=== PATIENT | female | born 1940 | race Caucasian/White ===

== ENCOUNTER 2022-05-28 12:12 | Inpatient (IN) | payer MEDICARE, SELFPAY ==
[2022-05-28] VITALS (7 sets, daily range): BP systolic 108–137; BP diastolic 71–87; PULSE 64–83; RESP 15–20; TEMP 36.4–37; O2SAT 93–98; BMI 20.7
--- NOTE | ~2022-05-28 | XR_ITS ---
XR chest 1V portable DATE: 05/28/2022 14:55 INDICATION: Cough TECHNIQUE: Portable upright AP chest on 05/28/2022 at 1440 COMPARISON:. None FINDINGS: Cardiomegaly. Aortic calcification and unfolding. Left lower lobe infiltrate and/or atelectasis. Discoid atelectasis or scarring, right lower lung. The lungs otherwise appear essentially clear. Minimal blunting of left costophrenic angle may indicate small left pleural effusion. Pulmonary vascularity is within normal range. No pneumothorax. Diffuse osteopenia. There is loss of height of T10 vertebral body. IMPRESSION: : Left lower lobe infiltrate and/atelectasis and small left pleural effusion Discoid atelectasis or scarring, right lower lung Cardiomegaly, aortic atherosclerosis Osteopenia, loss of height of T10 Reviewed, dictated and finalized at location B. RAMMER OPERATOR NUMERICAL CONTROL
--- NOTE | ~2022-05-28 | XR_ITS ---
XR hip RT 2V w AP pelvis DATE: 05/28/2022 14:57 INDICATION: Right groin pain TECHNIQUE: Portable AP pelvis views. Portable AP and lateral views of right hip COMPARISON: None FINDINGS: There is diffuse osteopenia. There is levoscoliosis and severe multilevel degenerative disc disease of the lumbar spine. There is a transitional lumbosacral vertebra sacralization pseudoarthrosis on the left. Alignment is preserved at the pubic symphysis and sacroiliac joints. There is slight cortical malalignment and lucency near the junction of the acetabulum and right super ior pubic ramus, likely due to a subtle acute fracture. There is lucency of the medial aspect of the right inferior pubic ramus which may represent fracture and/or lytic lesion. Pelvic CT examination is recommended for further evaluation. There is severe right hip joint space narrowing and mild spurring. There is chondrocalcinosis at the right hip. No fracture or dislocation, avascular necrosis or bone destruction of the right hip is det ected. IMPRESSION: Acute fracture Injection of the right acetabulum and superior pubic ramus and fracture and/or bone destruction at th e medial aspect of the right inferior pubic ramus. 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 ODILE FARMER IMPRESSION: Acute fracture Injection of the right acetabulum and superior pubic ramus and fracture and/or bone destruction at the medial aspect of the right inferior pubic ramus. CT pel vis examination is recommended for further evaluation Prominent right hip osteoarthritis Osteopenia Transitional lumbosacral vertebra Severe degenerative disc disease of the lumbar spine
--- NOTE | ~2022-05-28 | US_ITS ---
US renal BI 05/29/2022 08:32 Procedure: Realtime transabdominal ultrasound of the kidneys and bladder. Indication: Acute renal insufficiency Comparison: No prior studies for comparison. Findings: Renal echotexture is normal bilaterally without hydronephrosis, contour deforming mass or r enal calculus. The right kidney measures 10.6 cm and left kidney measures 13.3 cm. There is a left re nal cyst measuring 6.3 cm. Bladder within normal limits. Impression: 1: Left renal cyst measuring 6.3 cm. Reviewed, dictated and finalized at location A. ORT SPECIALIST Impression: 1: Left renal cyst measuring 6.3 cm.
--- NOTE | ~2022-05-28 | NM_ITS ---
EXAMINATION: NM bone scan whole body DATE: 06/01/2022 14:21 INDICATION: Metastases TECHNIQUE: 26.6 mCi Tc-99m HDP was administered intravenously. Delayed whole-body scintigrams were o btained. COMPARISON: CT of the chest and of the abdomen and pelvis dated 05/28/2022 FINDINGS: Multiple foci of marked increased uptake in the skull, sternum, spine, left glenoid, multiple ribs an d in the pelvis. There are corresponding primarily lytic bone lesions on CT. More typical pattern of likely degenerative joint centered uptake at the left patella bilateral hands and wrists and right ac romioclavicular joint. IMPRESSION: 1. Numerous foci of increased uptake corresponding to the innumerable lytic lesion seen on prior CT c onsistent with widespread osseous metastatic disease. Reviewed, dictated and finalized at location A. CTOR OF PHARMACY IMPRESSION: 1. Numerous foci of increased uptake corresponding to the innumerable lytic les ion seen on prior CT consistent with widespread osseous metastatic disease.
--- NOTE | ~2022-05-28 | CT_ITS ---
EXAMINATION: CT abdomen pelvis wo con DATE: 05/28/2022 15:27 INDICATION: Right hip and back pain. Hypercalcemia. TECHNIQUE: Computed tomography (CT) of the abdomen and pelvis was performed without intravenous contr ast. Automated exposure control and iterative reconstruction technique were employed. Exam dose: 316 .26 mGy-cm total exam DLP. COMPARISON: 05/28/2022 AP pelvis and right hip FINDINGS: There is left basilar lower lobe infiltrate and/or atelectasis with air bronchograms. There is prominent discoid atelectasis or scarring in the posterior basilar right lower lobe. Small left pleural effusion. Heart size is within normal limits. Approximately 6 mm lower medial right hepatic hypoattenuating lesion, most likely a small cyst. The l iver otherwise appears unremarkable on this limited noncontrast examination. The gallbladder is unremarkable. No bile duct or pancreatic duct dilatation. No pancreatic mass lesio n or calcification is evident. Normal splenic size. The adrenal glands are unremarkable. 5.6 cm exophytic lateral left renal cyst. 8.5 mm hyperdense lower pole right renal probable cyst. No urinary tract calculus or hydroureteronephrosis. There is abdominal aortic calcification but no aneurysm. No intraperitoneal or retroperitoneal or pel mt mass lesion or adenopathy or ascites is noted. The uterus, adnexal areas and urinary bladder are unremarkable. Normal appendix. There is a prominent of fecal material in the rectum and colon but no rectal or colon wall thickening is noted. There are numerous diverticula of the sigmoid and descending colon but no evidence of diverticulitis. No bowel obstruction or intraperitoneal free air. The examination is remarkable for extensive osteolytic lesions of the axial skeleton including some r ibs, severe lytic involvement of the included lower thoracic and lumbar spine, the sacrum, iliac bone s. Probable [id number] pathologic compression fracture T10. There is a pathologic fracture of t he anteromedial aspect of the right acetabulum and lateral aspect of the right superior pubic ramus. There is a pathologic fracture of the medial aspect of the right inferior pubic ramus . 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 Left basilar lower lobe infiltrate and/atelectasis with air bronchograms and prominent discoid atelec tasis or scarring in the posterior basilar right lower lobe Small left pleural effusion Probable 6 month right hepatic cyst, right renal cysts Normal appendix Diverticulosis of left colon; no evidence of diverticulitis Reviewed, dictated and finalized at Location A. Reviewed, dictated and finalized at location B. CTOR PATIENT ACCOUNTING IMPRESSION: Extensive severe osteolytic metastatic disease of the axial skelet on with pathologic fractures of the right acetabulum/lateral superior pubic meir us, right inferior pubic ramus, T10 compression fracture, likely pathologic. Left basilar lower lobe infiltrate and/atelectasis with air bronchograms and pr ominent discoid atelectasis or scarring in the posterior basilar right lower lo be Small left pleural effusion Probable 6 month right hepatic cyst, right renal cysts Normal appendix Diverticulosis of left colon; no evidence of diverticulitis
--- NOTE | ~2022-05-28 | CT_ITS ---
EXAMINATION: CT diagnostic chest wo con DATE: 05/28/2022 16:48 INDICATION: Cough, hypercalcemia TECHNIQUE: Computed tomography (CT) of the chest was performed without intravenous contrast. The dose -length product (DLP) was 128.65 mGy-cm. Automated exposure control and iterative reconstruction tech nique were employed. COMPARISON: None FINDINGS: There is moderate emphysema. There is a small left pleural effusion. There is atelectasis i n the lower lobes and lingula. No pneumothorax is identified. There is a 4.6 x 2.6 cm irregular mass of the left breast. Cardiomegaly is noted. There is an enlarged left axillary lymph node. There are w idespread lytic lesions throughout the spine, sternum, left scapula and multiple ribs. There are mult iple pathologic fractures of the thoracic spine. IMPRESSION: 1. Widespread osseous lytic lesions as described above. Differential would include multiple myeloma a nd metastatic disease. Given the presence of a large, irregular left breast mass. Finding favors meta static breast cancer. 2. Severe emphysema. 3. Cardiomegaly. 4. Small left pleural effusion. Reviewed, dictated and finalized at location F. OM TURNER IMPRESSION: 1. Widespread osseous lytic lesions as described above. Differential would incl ude multiple myeloma and metastatic disease. Given the presence of a large, irr egular left breast mass. Finding favors metastatic breast cancer. 2. Severe emphysema. 3. Cardiomegaly. 4. Small left pleural effusion.
--- NOTE | ~2022-05-28 | US_ITS ---
EXAMINATION: US GUIDED NEEDLE BIOPSY DATE: 06/02/2022 10:15 EXERCISE SCIENTIST INDICATION: Palpable left breast mass. Recent CT chest examination demonstrated a large left breast m ass. TECHNIQUE AND FINDINGS: The risks and potential benefits of the procedure were discussed with the patient, and written inform ed consent was obtained. Timeout procedure was performed. After sterile preparation of the left breas t, 1% lidocaine was utilized for local anesthesia. A 14G spring-loaded biopsy gun needle was advanced to the edge of the region of interest from a later al approach utilizing sonographic guidance. A total of three tissue core samples were obtained throu gh the lesion. An Inrad tissue marker clip was then placed at the biopsy site. Hemostasis was achiev ed. A sterile bandage was applied. The patient tolerated procedure well and there was no evidence of immediate complication. The patien t was given verbal instructions prior to departing from the department. The tissue samples were submi tted to surgical pathology for histologic analysis. IMPRESSION: 1. Successful ultrasound guided biopsy of left subareolar breast mass with biopsy marker placement. Please refer to pathology report for histologic analysis. Reviewed, dictated and finalized at Location A. Reviewed, dictated and finalized at location A. CISE SCIENTIST IMPRESSION: 1. Successful ultrasound guided biopsy of left subareolar breast mass with bio psy marker placement. Please refer to pathology report for histologic analysis.
[2022-05-28 12:43] LABS: Basophils Absolute Auto 0.1 K/mm3 (0.0-0.1); Eosinophils Absolute Auto 0.3 K/mm3 (0-0.3); Eosinophils Percent Auto 3.4 % (0-4.4); Hematocrit 39.3 % (37.0-47.0); Immature Granulocyte Absolute 0.05 K/mm3 (0.00-0.031); Immature Granulocyte Percent A 0.6 % (0-0.5); Lymphocytes Absolute Auto 1.73 K/mm3 (0.9-3.2); Lymphocytes Percent Auto 19.1 % (18.3-44.2); Mean Corpuscular HGB Conc 33.1 g/dl (32-36); Mean Corpuscular Hemoglobin 31.2 pg (26-34); Mean Corpuscular Volume 94.2 fl (80-100); Mean Platelet Volume 10.1 fl (7.4-10.4); Monocytes Absolute Auto 0.5 K/mm3 (0.1-0.6); Monocytes Percent Auto 5.9 % (2.6-8.5); Neutrophils Absolute Auto 6.3 K/mm3 (1.3-6.7); Platelet Count Result 380 k/mm3 (150-375); Red Blood Count 4.17 M/mm3 (4.2-5.4); Red Cell Distribution Width 14.9 % (11.5-14.5)
[2022-05-28 12:58] LABS: Alanine Aminotransferase 20 U/L (6-35); Albumin Level 4.3 g/dL (3.5-5.1); Alkaline Phosphatase 143 U/L (38-126); Anion Gap 16 mmol/L (8-16); Aspartate Amino Transferase 73 U/L (14-36); Bilirubin,Total 0.5 mg/dL (0.2-1.3); Blood Urea Nitrogen 38 mg/dL (7-17); Carbon Dioxide 31 mmol/L (22-30); Chloride 90 mmol/L (98-107); Estimated CRCL calculation 17 ml/min; Estimated Glomerular Filt Rate 21; Glucose 126 mg/dL (65-110); Potassium 2.3 mmol/L (3.4-5.0); Sodium 137 mmol/L (137-145)
[2022-05-28 13:10] LABS: Calcium 14.5 mg/dL (8.4-10.2)
--- NOTE | 2022-05-28 13:40 | ECG_ITS ---
Measurements Intervals [place] Rate: 67 P: 261 [place]: 155 QRS: 15 QRSD: 98 T: 34 QT: 395 QTc: 418 Interpretive Statements SINUS RHYTHM VENTRICULAR PREMATURE COMPLEX BORDERLINE ECG NO PREVIOUS ECG AVAILABLE FOR COMPARISON Electronically Signed On 05-28-2022 15:51:26 DIRECTOR OF ENGINEERING by Jn Choudhary D.O.
[2022-05-28 13:57] LABS: Magnesium 2.5 mg/dL (1.6-2.3)
[2022-05-28 15:31] LABS: SARS-CoV-2 RNA PCR Negative
--- NOTE | 2022-05-28 15:50 | ED.GENADULT ---
HPI - General Adult General Chief complaint: Recheck/Abnormal Lab/Rx Stated complaint: ELEVATED CALCIUM Time Seen by Provider: 05/28/22 13:40 History of Present Illness HPI narrative: Patient presents emergency department from home for abnormal labs. Patient states she gone to visit her PCP Dr. Albert Ulrich yesterday for a routine visit blood work of been done and she been called today telling her to come to the emergency department because her calcium level is elevated. She states that she has had no recent illness she denies any recent nausea vomiting or diarrhea denies any coughs or fevers. She states that approximately a month ago she did strained a muscle in her right lower leg and has had progressive difficulty walking since that time she states she had had been having to use crutches she denies any direct trauma or fall she states she was post be getting x-rays of this area today but they had called to tell her to come to the ER asking for further evaluation Related Data Allergies Allergy/AdvReac Type Severity Reaction Status Date / Time Sulfa (Sulfonamide Allergy Rash Verified 05/28/22 15:59 Antibiotics) Review of Systems Review of Systems: Gen.: Denies fevers or chills Eyes: Denies eye pain or visual change ENT: Denies congestion Respiratory: Denies shortness of breath or cough CV: Denies chest pain or palpitations GI: Denies abdominal pain nausea, emesis or diarrhea Musculoskeletal: See HPI Neuro: Denies numbness, tingling, weakness or focal weakness Skin: Denies rash Except as documented, all other systems reviewed and negative [facility] Past Medical History Medical History (Updated 05/28/22 @ 17:58 by Claudio Bills DO) Hypertension Social History Social History (Updated 05/28/22 @ 17:55 by Claudio Bills DO) Smoking status: Former smoker Exam Narrative: APPEARANCE: No acute distress, nontoxic, resting in bed EYES: EOMI HEENT: Normocephalic, atraumatic, OMM RESPIRATORY: No respiratory distress Clear to auscultation bilaterally with no rhonchi wheezing or rales. CARDIOVASCULAR: Regular rate and rhythm without murmurs rubs or gallops. ABDOMINAL: Soft, nontender, nondistended, no rebound or guarding MUSCULOSKELETAl: Moves all extremities. No clubbing, cyanosis or edema. No tenderness of the anterior lateral hip full flexion-extension of the right hip with pain with flexion of the hip greater than 45 degrees no tenderness of the right knee or ankle dorsalis pedis pulse 2+ neurovascular Back: No midline thoracic or lumbar tenderness to palpation NEURO: Awake and alert. Following commands, speech normal, no focal deficits SKIN:: Warm, dry. No rashes lesions or abrasions PSYCHIATRIC: Normal affect/mood, Course Course Emergency Course: Discussed with Dr. Samuels presentation work-up agrees with consult recommends patient receiving a liter fluid at this time with IV hydration and repeat labs in a.m. Discussed with Dr. Ndiaye presentation work-up he reviewed the patient CT scan states the the patient was nonsurgical and he is able to follow as a consult Discussed with Dr. Mott presentation work-up he agrees CT scan of the chest and agrees with consult Discussed with ARACELI Robin for Dr. Stark agrees with admission Discussed with patient and family results of workup and diagnosis. Discussed need for admission. Patient and family understand and agree to current treatment plan. I did have a long discussion with the patient and daughter regarding metastatic disease we discussed the left breast mass need for follow-up with consultants Vital Signs Vital signs: Vital Signs Temperature 97.6 F 05/28/22 12:22 Pulse Rate 83 05/28/22 12:22 Respiratory Rate 17 05/28/22 12:22 Blood Pressure 123/80 05/28/22 12:22 Pulse Oximetry 96 05/28/22 12:22 Oxygen Delivery Room Air 05/28/22 12:22 Temperature 97.6 F 05/28/22 12:22 Pulse Rate 68 05/28/22 15:01 Respiratory Rate 15
--- NOTE | 2022-05-28 15:57 | PC.NURSE ---
ATTEMPTED TO OBTAIN URINE SAMPLE IN SPECIMEN CONTAINER IN BEDSIDE COMMODE PT REFUSED STRAIGHT CATH. PT APPARENTLY HAD OLD USED TOILET PAPER IN HER UNDERWEAR THAT FELL AND CONTAMINATED THE SAMPLE.
[2022-05-28] MEDS: POTASSIUM CHLORIDE 20 MEQ TABLET 40 MEQ PO (16:02)
[2022-05-28] MEDS: POTASSIUM CHLORIDE INJ 40 MEQ in SODIUM CHLORIDE 0.9% IV 500 ML 130 MEQ IVPB (16:02)
[2022-05-28] MEDS: SODIUM CHLORIDE 0.9% IV 1,000 ML 999 ML IV CONT (16:03)
[2022-05-28 18:05] LABS: Appearance Urine Clear (Clear); Bilirubin Urine Negative (Negative); Blood Urine Negative (Negative); Color Urine Yellow (Yellow); Glucose Urine UA Negative (Negative); Ketones Urine Trace mg/dL (Negative); Leukocyte Esterase Ur Negative LEU/UL (Negative); Nitrate Urine Negative (Negative); Protein Urine Negative (Negative); Specific Grav Ur 1.015 (1.001-1.035); Urobilinogen Urine 0.2 mg/dL (<2.0)
[2022-05-28 18:15] LABS: Mucus Urine Rare /lpf; RBC Urine 0-2 /hpf (0-2); WBC Urine 0-3 /hpf
--- NOTE | 2022-05-28 18:30 | ADMGEN ---
This patient, Ludy Morton, was admitted to Medical Room 242-. Patient/family oriented to hospital policies and general routines including ID bracelet, bed and alarms, visiting hours, pain management, procedures, bathroom and other care routines, personal items, smoking policy, room service/diet, and visiting hours. Information on how to activate the Rapid Response Team has been discussed. Patient/Family are encouraged to report perceived risks to care and to ask questions if they do not understand what they are told or what they should do.
[2022-05-28 18:36] LABS: Add Urine Microscopic? YES
[2022-05-28] MEDS: SODIUM CHLORIDE 0.9% IV 1,000 ML 80 ML IV CONT (20:51)
--- NOTE | 2022-05-28 23:43 | PM.IMHP ---
H&P: HPI History of Present Illness Date/Time: 05/28/22 22:43 Chief Complaint: Elevated calcium Narrative: The patient presented to the emergency room from home with abnormal labs. The patient saw her primary care doctor yesterday for routine visit and blood work. Her primary care doctor told her to come to the emergency room. She stated she had no recent illness. Approximately 1 month ago the patient did strain her muscle in her right lower leg and has progressively having difficulty walking and has been using crutches. She denies any direct trauma or injury. The patient was scheduled to have some x-rays performed but instead was told to come to the emergency room. Potassium was noted to be 2.3. Chloride 90. Creatinine 2.2 and BUN 38. Her calcium was read as 14.5. AST 73 and alkaline phosphatase 143. The patient was negative for COVID. The patient does have a mass to her left breast. The patient stated it was a mole that started up very small and has grown over the last 10 years. She stated her last mammogram was approximately [address] was read as the following1. Widespread osseous lytic lesions as described above. Differential would include multiple myeloma and metastatic disease. Given the presence of a large, irregular left breast mass. Finding favors metastatic breast cancer. 2. Severe emphysema. 3. Cardiomegaly. 4. Small left pleural effusion. 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 Left basilar lower lobe infiltrate and/atelectasis with air bronchograms and prominent discoid atelectasis or scarring in the posterior basilar right lower lobe Small left pleural effusion Probable 6 month right hepatic cyst, right renal cysts Normal appendix Diverticulosis of left colon; no evidence of diverticulitis Hip and pelvis CT was read as the followingnjection of the right acetabulum and superior pubic ramus and fracture and/or bone destruction at the medial aspect of the right inferior pubic ramus. 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 Ortho was called and that the patient is nonsurgical and he will not be able to follow her as a consult. Dr. Mott was notified any agrees with consult. The patient is being admitted to observation status on the date of service of 05/28/2022. Review of Systems Review of Systems: See HPI All systems reviewed & are unremarkable except as noted in HPI and below Constitutional: Constitutional: Reports as per HPI and Reports no additional constitutional complaints Eyes: Eyes: Reports as per HPI and Reports no additional eye complaints ENT: Reports system reviewed and no additional complaints, except as documented and Reports Normal hearing present Cardiovascular: Cardiovascular: Reports no additional cardiovascular complaints Respiratory: Respiratory: Reports no additional respiratory complaints and Reports no additional respiratory complaints Gastrointestinal: Gastrointestinal: Reports as per HPI and Reports no additional gastrointestinal complaints Musculoskeletal: Musculoskeletal: Reports no additional musculoskeletal complaints Integumentary/Breasts: Skin/Breast: Reports system reviewed and no additional complaints, except as docu and Reports as per HPI Neurologic: Reports system reviewed and no additional complaints, except as documented, Reports as per HPI and Reports Normal hearing present Psychiatric: Psychiatric: Reports no additional psychiatric complaints and Reports as per HPI Endocrine: Endocrine: Reports no additional endocrine complaints Hematologic/Lymphatic: Hematologic/Lymphatic: Reports no additio
[2022-05-29] VITALS (9 sets, daily range): BP systolic 122–133; BP diastolic 60–74; PULSE 61–111; RESP 16–17; TEMP 36.4–36.8; O2SAT 93–94
[2022-05-29] MEDS: POTASSIUM CHLORIDE INJ 40 MEQ in SODIUM CHLORIDE 0.9% IV 500 ML 130 MEQ IVPB (03:40)
[2022-05-29] MEDS: POTASSIUM CHLORIDE 20 MEQ TABLET 40 MEQ PO (05:20)
[2022-05-29 05:41] LABS: Basophils Absolute Auto 0.1 K/mm3 (0.0-0.1); Basophils Percent Auto 0.8 % (0.2-1.2); Eosinophils Absolute Auto 0.3 K/mm3 (0-0.3); Eosinophils Percent Auto 2.7 % (0-4.4); Hematocrit 37.1 % (37.0-47.0); Hemoglobin 12.2 g/dL (12.0-15.0); Immature Granulocyte Absolute 0.04 K/mm3 (0.00-0.031); Immature Granulocyte Percent A 0.4 % (0-0.5); Lymphocytes Absolute Auto 1.57 K/mm3 (0.9-3.2); Lymphocytes Percent Auto 17.1 % (18.3-44.2); Mean Corpuscular HGB Conc 32.9 g/dl (32-36); Mean Corpuscular Hemoglobin 31.4 pg (26-34); Mean Corpuscular Volume 95.6 fl (80-100); Mean Platelet Volume 10.8 fl (7.4-10.4); Monocytes Absolute Auto 0.6 K/mm3 (0.1-0.6); Monocytes Percent Auto 6.7 % (2.6-8.5); Neutrophils Absolute Auto 6.6 K/mm3 (1.3-6.7); Neutrophils Percent Auto 72.3 % (45.5-73.1); Platelet Count Result 361 k/mm3 (150-375); Red Blood Count 3.88 M/mm3 (4.2-5.4); White Blood Count 9.2 K/mm3 (4.5-10.0)
[2022-05-29 05:41] LABS: Anion Gap 8 mmol/L (8-16); Blood Urea Nitrogen 33 mg/dL (7-17); Calcium 12.5 mg/dL (8.4-10.2); Carbon Dioxide 29 mmol/L (22-30); Chloride 101 mmol/L (98-107); Estimated CRCL calculation 22 ml/min; Estimated Glomerular Filt Rate 29; Glucose 88 mg/dL (65-110); Sodium 138 mmol/L (137-145)
[2022-05-29 05:55] LABS: Alanine Aminotransferase 18 U/L (6-35); Albumin Level 3.9 g/dL (3.5-5.1); Alkaline Phosphatase 121 U/L (38-126); Anion Gap 11 mmol/L (8-16); Aspartate Amino Transferase 71 U/L (14-36); Bilirubin,Total 0.4 mg/dL (0.2-1.3); Blood Urea Nitrogen 30 mg/dL (7-17); Calcium 13.1 mg/dL (8.4-10.2); Carbon Dioxide 29 mmol/L (22-30); Chloride 100 mmol/L (98-107); Estimated CRCL calculation 20 ml/min; Estimated Glomerular Filt Rate 25; Glucose 87 mg/dL (65-110); Potassium 2.9 mmol/L (3.4-5.0); Sodium 140 mmol/L (137-145)
[2022-05-29 06:27] LABS: Potassium 2.6 mmol/L (3.4-5.0)
[2022-05-29 06:29] LABS: Parathyroid Intact 13.1 pg/mL (7.5-53.5)
[2022-05-29] MEDS: cefTRIAXone 2 GM in SODIUM CHLORIDE 0.9% IV 100 ML 200 ML IVPB (08:46)
[2022-05-29 09:25] LABS: Free T4 Free Thyroxine Reflex 0.12 ng/dL (0.78-2.19)
[2022-05-29] MEDS: SIMETHICONE 80 MG TAB.CHEW PO (10:10)
--- NOTE | 2022-05-29 12:26 | PM.CNNEP ---
Assessment and Plan Assessment and plan (1) BHARGAVI (acute kidney injury): Code(s): N17.9 - Acute kidney failure, unspecified Status: Acute Assessment and Plan: etiology not clear suspicion falls on volume depletion and/or hypercalcemia likely further worsened by use of JONAS-I and HCTZ follow-up on renal ultrasound check urine electrolytes, CPK, and urine eosinophils continue IVF hydration for now follow repeat labs and UOP (2) Hypercalcemia: Code(s): E83.52 - Hypercalcemia Status: Acute Assessment and Plan: most likely secondary to metastatic bone lesions check SPEP, UPEP, and serum/urine immunofixation (multiple myeloma is also possible) likely will need bisphosphonate therapy versus zometa but would hold off until renal function normalizes/stabilizes improvement noted with IVF hydration if calcium fails to normalize or becomes symptomatic, consider SQ calcitonin (3) Hypokalemia: Code(s): E87.6 - Hypokalemia Status: Acute Assessment and Plan: continue aggressive repletion magnesium normal follow trend of repeat K+ levels (4) Hypertension: Code(s): I10 - Essential (primary) hypertension Status: Acute Assessment and Plan: reasonably control at this time holding JONAS-I/HCTZ at this time due to #1 PRN hydralazine ordered (5) Metastatic breast cancer: Code(s): C50.919 - Malignant neoplasm of unspecified site of unspecified female breast Status: Acute Assessment and Plan: very likely given evidence to date CT scan with 4.6 x 2.6cm mass on left breast CT scan with multiple lytic bone lesions also Hem/Onc consulted Greater than 20 minutes spent with patient and family at bedside discussing the issue of her renal failure in association with hypercalcemia as well as improvement that has been noted to date. Will continue to follow. History of Present Illness Reason for Consult Consult date: 05/29/22 Reason for consult: acute renal failure and Other (hypercalcemia) Chief Complaint Chief complaint: hypokalmia,hypercalemia,acute renal insufficiency, History of Present Illness Narrative: The patient is an 81-year-old female with a past medical history as outlined below who presented to [facility] Emergency room at the behest of her primary care physician due to abnormal blood tests. The patient saw her primary care physician for routine follow-up and apparently had blood work at that time in conjunction with the visit. Her primary care physician called her yesterday that she should come to the emergency room to be evaluated due to the laboratory findings. She was apparently told that her calcium was extremely elevated. In spite of this laboratory abnormality, the patient has no acute complaints in general. Given this phone call from her primary care physician, she presented to emergency room for further assessment. Workup and evaluation emergency room demonstrated the patient be hemodynamically stable and in no acute distress. Repeat blood test demonstrated several electrolyte abnormalities including hypokalemia with a potassium of 2.3, hypercalcemia with up level of 14.5, and an elevated BUN and creatinine of 38 and 2.2 respectively. The patient reports that she has never been told that she had any issues with her kidneys in terms of renal insufficiency or chronic kidney disease. for further evaluation of the a for mentioned hypercalcemia, she did undergo a CT scan of the chest abdomen pelvis which demonstrated widespread osseous lytic lesions concerning for multiple myeloma versus metastatic disease, a 4.6 x 2.2 left breast mass, emphysema, cardiomegaly, and a T10 compression fracture. Given the laboratory and imaging findings as mentioned, she was admitted to the hospital for further evaluation and therapy Since her admission, she has been receiving aggressive IV fluid hydration with some improvem
--- NOTE | 2022-05-29 12:53 | PC.NURSE ---
On 05/29/22, the student, [Lindsay Clark], provided care and completed [facility] documentation on this patient. I have reviewed the student's documentation and agree with the findings.
--- NOTE | 2022-05-29 14:15 | PM.IMPN ---
Progress Note: A&P Assessment and Plan (1) Metastatic disease: Code(s): C79.9 - Secondary malignant neoplasm of unspecified site Status: Acute Assessment and Plan: -Dr. Pantera azevedo has been consulted. -the patient has a large mass to left breast. The patient stated that it started out as a small mole but has been gradually growing over the last 10 years. The patient stated that she had mammogram approximately 2 years ago. -I did consult palliative care specialist for placement. -patient is open to getting a breast biopsy to find out the etiology of the mass. The patient is open to hospice and comfort measures. (2) Hypercalcemia: Code(s): E83.52 - Hypercalcemia Status: Acute Assessment and Plan: Calcium most likely is elevated due to her metastatic bone lesions. (3) Acute hypokalemia: Code(s): E87.6 - Hypokalemia Status: Acute Assessment and Plan: The patient has been on lisinopril with hydrochlorothiazide. She had a replacement potassium in the emergency room. Check magnesium and potassium again potassium 2.9 will recheck again (4) Acute renal failure: Code(s): N17.9 - Acute kidney failure, unspecified Status: Acute Assessment and Plan: -renal ultrasound has been ordered. Nephrology has been consulted. Continue with IV fluids. Creatinine 1.7. CRF And gentle hydration. Avoid nephrotoxic drugs. Monitor antihypertensive drugs Avoid NSAIDs. Routine CMP monitor GFR. Monitor electrolytes potassium levels. Dose antibiotics depending on creatinine clearance Routine follow-up with PCP and screwhead stoner and polisher recommended Plan DVT prophylaxis. GI prophylaxis. All records reviewed Discussed plan of care with the nursing staff and with the patient in detail. Answered all questions and concerns from the patient. All labs have been reviewed. Code status updated Spoke to patient and family at length answered all questions patient waiting to talk to the oncologist before he makes a final decision about hospice versus palliative management dictation may have been done utilizing a voice recognition system. Attempts have been made to correct errors. However, there may be uncorrected grammatical, spelling, and recognition errors present. Subjective Date/time seen: 05/29/22 14:15 Interval history: Patient remain in bed comfortably no chest pain or shortness of breath occasional cough Review of Systems Review of Systems: All systems reviewed & are unremarkable except as noted in HPI and below Exam Const: General: comfortable HENMT: Ears: TM's normal bilaterally Mouth: Yes moist mucous membranes Eyes: General: appearance normal, both eyes and all related structures Neck: Neck: supple and no JVD Resp: Effort & Inspection: normal respiratory effort Cardio: Rate: regular rate Rhythm: regular rhythm GI: GI Palp: Yes Soft to palpation Auscultation: normal bowel sounds Neuro: Speech: normal speech Sensory Exam: normal sensation Extrem: General: normal to inspection and no pedal edema Psych: Mental Status: mental status grossly normal Objective Data Vital Signs Vital Signs: Vital Signs - 24 hr 05/28/22 14:31 05/28/22 15:01 05/28/22 18:50 Temperature 36.4 C Pulse Rate 71 68 67 Respiratory Rate 20 15 20 Blood Pressure 108/87 112/71 137/77 Pulse Oximetry 94 93 98 Oxygen Delivery 05/28/22 20:20 05/28/22 21:47 05/28/22 20:00 Temperature 37.0 C Pulse Rate 64 73 Respiratory Rate 17 Blood Pressure 130/71 Pulse Oximetry 97 Oxygen Delivery Room Air 05/29/22 00:00 05/29/22 04:00 05/29/22 05:10 Temperature 36.8 C Pulse Rate 69 61 65 Respiratory Rate 17 Blood Pressure 131/66 Pulse Oximetry 94 Oxygen Delivery 05/29/22 08:45 05/29/22 08:00 05/29/22 12:00 Temperature Pulse Rate 111 H 72 Respiratory Rate Blood Pressure Pulse Oximetry Oxygen Delivery Room Air Intake/Output In
[2022-05-29 15:41] LABS: Hematocrit 35.2 % (37.0-47.0); Hemoglobin 11.6 g/dL (12.0-15.0); Mean Corpuscular Hemoglobin 31.1 pg (26-34); Mean Corpuscular Volume 94.4 fl (80-100); Mean Platelet Volume 9.9 fl (7.4-10.4); Platelet Count Result 353 k/mm3 (150-375); Red Blood Count 3.73 M/mm3 (4.2-5.4); Red Cell Distribution Width 15.3 % (11.5-14.5); White Blood Count 10.7 K/mm3 (4.5-10.0)
[2022-05-29 15:44] LABS: Alanine Aminotransferase 18 U/L (6-35); Albumin Level 3.5 g/dL (3.5-5.1); Alkaline Phosphatase 121 U/L (38-126); Anion Gap 8 mmol/L (8-16); Aspartate Amino Transferase 63 U/L (14-36); Bilirubin,Total 0.4 mg/dL (0.2-1.3); Blood Urea Nitrogen 30 mg/dL (7-17); Calcium 12.2 mg/dL (8.4-10.2); Carbon Dioxide 25 mmol/L (22-30); Chloride 105 mmol/L (98-107); Estimated CRCL calculation 24 ml/min; Estimated Glomerular Filt Rate 31; Glucose 104 mg/dL (65-110); Potassium 3.2 mmol/L (3.4-5.0); Sodium 138 mmol/L (137-145)
--- NOTE | 2022-05-29 16:21 | PM.CNOR ---
Assessment and Plan Assessment and plan (1) Pathologic fracture of acetabulum: Code(s): M84.454A - Pathological fracture, pelvis, initial encounter for fracture Status: Acute Assessment and Plan: Patient is a an 81-year-old female who started having pain in the medial groin of her right hip area 6 or 8 weeks ago. She thought that she pulled muscle but denies any incident that would have caused an injury. Her symptoms have progressively worsened to the point where she has to use a walker at home to tolerate walking. She was seen in the doctor's office yesterday and noted to have significant hypercalcemia and was told to come directly to the emergency room. She has renal insufficiency as well. As part of her workup she was complaining of hip pain and had a CT of the pelvis as well as x-rays the right hip which demonstrate lytic lesions throughout the acetabulum and pelvis with large lytic lesion and pathologic fracture the junction of the inferior pubic ramus and acetabulum. There is also pathologic superior pubic ramus fracture. It is my opinion that internal fixation is not necessary for the pathologic acetabular fracture at this time as it should be stable unless the lytic lesion is allowed to progress and involves more of the medial wall which could lead to protrusion and she should be touch weight-bearing on the right leg until healing occurs. She has been advised that she may need a breast biopsy and other evaluation. Evaluation also showed a pathologic fracture of T10. I spoke to the emergency room physician yesterday Dr. Bills and he indicated he would consult Neurosurgery about that but I see that Neurosurgery has not been consult that so I will put a consult in. Patient may need bracing and specific therapy directed at that location. It will require follow-up which should be done by a campaign management specialist. I recommended pharmacologic DVT prophylaxis. She has SCDs ordered but they are not on yet and I have asked the nurse to put them on now. Will order Lovenox 40 mg Q 24 hours also and the dose may need to be adjusted if her creatinine clearance drops below 30. Her risk of thromboembolic complications with her immobility and widely metastatic disease is high. 30 minutes were spent in total care this patient more than half this time spent in [id number] care. History of Present Illness HPI Consult date: 05/29/22 Chief complaint: hypokalmia,hypercalemia,acute renal insufficiency, PMFSH Past Medical History Medical History (Updated 05/29/22 @ 16:34 by Randal Ndiaye MD) Hypertension Tobacco abuse Surgical History Surgical History (Updated 05/29/22 @ 00:30 by Sharda Gillis NP) No pertinent past surgical history Family History Family History (Updated 05/28/22 @ 19:06 by Dorie Cortez RN) Other Unknown family medical history Social History Social History (Updated 05/29/22 @ 00:31 by Sharda Gillis NP) Social History: The patient lives home alone and is . She has 3 children. 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 Patient stated she is down to smoking 6 cigarettes a day. She denies any alcohol marijuana use. She does not have a durable power tax associate attorney for healthcare. Code status full code Years smoked: 68 Smoking status: Current every day smoker Tobacco type: cigarettes Alcohol intake: former Substance use: never Substance use type: does not use Lack of Transportation: No Lack of Food: Never True Current Housing: I Have Housing Concerned About Future Housing: No Difficulty Paying Gas/Electric Bills: No Difficulty Paying for Meds: No Currently Unemployed: No Education: High School Diploma/GED Difficulty w/ Childcare or Family Care: No Spiritual care concerns: No (Presbetarian) Meds Home Medications and Allergies Home Medications Medication Instructions Recorded Confirmed Type lisinopril 10 1 tab
[2022-05-29] MEDS: SODIUM CHLORIDE 0.9% IV 1,000 ML 80 ML IV CONT ×2 (17:26→20:56)
--- NOTE | 2022-05-29 17:57 | PDONCCN ---
HPI - Date of Consult Date/Time: 05/29/22 17:57 Requesting Physician: Zack Stark MD Primary Care Provider: PHYSICIAN NOT ON STAFF - Consult Narrative Reason for consult: Likely metastatic breast cancer Narrative: Ludy Morton is a 81 year old female with history of smoking and COPD came into the hospital after primary care physician found abnormal labs including elevated calcium. She noticed a lump/mole in the left breast 13 years ago but did not seek any medical attention and did not have any mammogram for that long. She has been getting progressively weaker and has lost 10-15 lb weight. She denies any fevers and chills. Complain of some lower back pain. Labs showed potassium of 2.3 and calcium of 14.5. 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 CT chest showed 4.6 x 2.6 cm irregular mass of the left breast with enlarged left axillary lymph node. Patient had widespread lytic lesion of the spine, sternum, left scapula and multiple ribs. Review of Systems - Review of Systems All systems reviewed & are unremarkable except as noted in HPI and bel - Neurologic Reports system reviewed and no additional complaints, except as documented, Reports hearing normal [facility] Medical History: Medical History (Last Updated 05/29/22 @ 00:42 by Sharda Gillis NP) Hypertension Tobacco abuse Surgical History: Surgical History (Last Updated 05/29/22 @ 00:30 by Sharda Gillis NP) No pertinent past surgical history Family History: Family History (Last Updated 05/28/22 @ 19:06 by Dorie Cortez RN) Other Unknown family medical history - Social History Social History: Social History (Last Updated 05/29/22 @ 00:31 by Sharda Gillis NP) Alcohol Use: Alcohol intake: former Substance Use: Substance use: never Substance use type: does not use Others: Spiritual care concerns: No Spiritual care concerns comment: Presbetarian Smoking Status: Smoking status: Current every day smoker Tobacco type: cigarettes Smoking Pack-years: Years smoked: 68 Social Determinants of Health: Has the Lack of Transportation Kept You From Medical Appointments or From Getting Medications?: No Within the Past 12 Months, Were You Worried Whether Your Food Would Run Out Before You Got Money to Buy More?: Never True What is Your Housing Situation Today?: I Have Housing Are You Worried That in the Next 2 Months, You May Not Have Your Own Housing to Live In?: No Do You Have Trouble Paying Your Heating Or Electricity Bill?: No Do You Have Trouble Paying For Medicines?: No Are You Currently Unemployed and Looking for Work?: No Highest Level of Education Completed: High School Diploma/GED Do You Have Trouble With Childcare or the Care of a Family Member?: No Exam - Vital Signs Vital Signs - 24 hr 05/28/22 18:50 05/28/22 20:20 05/28/22 21:47 Temperature 36.4 C 37.0 C Pulse Rate 67 64 Respiratory Rate 20 17 Blood Pressure 137/77 130/71 Pulse Oximetry 98 97 Oxygen Delivery Room Air 05/28/22 20:00 05/29/22 00:00 05/29/22 04:00 Temperature Pulse Rate 73 69 61 Respiratory Rate Blood Pressure Pulse Oximetry Oxygen Delivery 05/29/22 05:10 05/29/22 08:45 05/29/22 08:00 Temperature 36.8 C Pulse Rate 65 111 H Respiratory Rate 17 Blood Pressure 131/66 Pulse Oximetry 94 Oxygen Delivery Room Air 05/29/22 12:00 05/29/22 14:00 Temperature 36.7 C Pulse Rate 72 71 Respiratory Rate 17 Blood Pressure 133/74 Pulse Oximetry 93 Oxygen Delivery - Exam HEENT: EOMI, PERRLA Neck: supple. No: JVD Lungs: clear to auscultation, normal air movement Heart: no murmurs, gallops, or rubs, regular rhythm, regular rate Abdomen: abdomen so
--- NOTE | 2022-05-29 20:20 | WPDNEUROSGCN ---
Assessment and Plan Assessment and plan (1) Pathologic compression fracture of spine: Code(s): M48.50XA - Collapsed vertebra, not elsewhere classified, site unspecified, initial encounter for fracture Status: Acute Assessment and Plan: Ms. Morton is an 81-year-old female who presented with hypercalcemia and was discovered to have widely-metastatic cancer, likely of breast origin. She has been having mid-back pain recently with some radiation to the left side of her thorax. She does not have any signs or symptoms of cord compression at this time. CT reveals diffuse osteolytic lesions in her spine causing multiple pathologic fractures without significant loss of height or any retropulsion. A TLSO brace may be helpful for comfort purposes. She would like to wait for the biopsy results to decide whether she wants a brace. I would also consider MRI brain without/with contrast for metastatic workup. Review of Systems Review of Systems: 14-point ROS was conducted and was negative aside from above PMFSH Past Medical History Medical History (Updated 05/29/22 @ 20:38 by Danisha Gottlieb MD) Hypertension Tobacco abuse Surgical History Surgical History (Updated 05/29/22 @ 18:05 by Marck Mott MD) No pertinent past surgical history Family History Family History (Updated 05/28/22 @ 19:06 by Dorie Cortez RN) Other Unknown family medical history Social History Social History (Updated 05/29/22 @ 00:31 by Sharda Gillis NP) Social History: The patient lives home alone and is . She has 3 children. 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 Patient stated she is down to smoking 6 cigarettes a day. She denies any alcohol marijuana use. She does not have a durable power insurance attorney for healthcare. Code status full code Years smoked: 68 Smoking status: Current every day smoker Tobacco type: cigarettes Alcohol intake: former Substance use: never Substance use type: does not use Lack of Transportation: No Lack of Food: Never True Current Housing: I Have Housing Concerned About Future Housing: No Difficulty Paying Gas/Electric Bills: No Difficulty Paying for Meds: No Currently Unemployed: No Education: High School Diploma/GED Difficulty w/ Childcare or Family Care: No Spiritual care concerns: No (Presbetarian) Meds Home Medications and Allergies Home Medications Medication Instructions Recorded Confirmed Type lisinopril 10 1 tablet PO DAILY 05/28/22 05/28/22 History mg-hydrochlorothiazide 12.5 mg tablet Allergies Allergy/AdvReac Type Severity Reaction Status Date / Time Sulfa (Sulfonamide Allergy Rash Verified 05/28/22 18:52 Antibiotics) Vital Signs Vital Signs - 24 hr 05/28/22 21:47 05/29/22 00:00 05/29/22 04:00 Temperature 37.0 C Pulse Rate 64 69 61 Respiratory Rate 17 Blood Pressure 130/71 Pulse Oximetry 97 Oxygen Delivery 05/29/22 05:10 05/29/22 08:45 05/29/22 08:00 Temperature 36.8 C Pulse Rate 65 111 H Respiratory Rate 17 Blood Pressure 131/66 Pulse Oximetry 94 Oxygen Delivery Room Air 05/29/22 12:00 05/29/22 14:00 05/29/22 16:00 Temperature 36.7 C Pulse Rate 72 71 74 Respiratory Rate 17 Blood Pressure 133/74 Pulse Oximetry 93 Oxygen Delivery Exam Narrative: No sensory level No hyperreflexia, Babinski, or clonus Full strength in all extremities Unless otherwise stated above, the patient's physical exam is as follows: General: -Well developed and well nourished. No acute distress. Cooperative with exam. Mental status: -Awake and oriented to person, place, and time. Affect is normal. -Fund of knowledge appropriate -Recent and remote memory are intact -Attention span and concentration appear normal -Language function is normal -There is no evidence of aphasia in conversational speech. Cranial nerves: -CN II: Visual fiel
[2022-05-29 21:40] LABS: Potassium Urine Random 32.8 meq/L; Sodium Urine Random 78 meq/L
[2022-05-29 21:44] LABS: Urine Cotinine NEGATIVE
[2022-05-29 22:04] LABS: Eosinophil Urine None Seen % (None Seen)
[2022-05-30] VITALS (10 sets, daily range): BP systolic 114–128; BP diastolic 62–71; PULSE 59–75; RESP 16–18; TEMP 36.1–36.8; O2SAT 94–95
[2022-05-30] MEDS: SODIUM CHLORIDE 0.9% IV 1,000 ML 80 ML IV CONT (05:40)
[2022-05-30] MEDS: LEVOTHYROXINE SODIUM 50 MCG TABLET PO (06:15)
[2022-05-30 07:36] LABS: Albumin Level 3.1 g/dL (3.5-5.1); Anion Gap 8 mmol/L (8-16); Blood Urea Nitrogen 26 mg/dL (7-17); Calcium 11.5 mg/dL (8.4-10.2); Carbon Dioxide 25 mmol/L (22-30); Chloride 105 mmol/L (98-107); Estimated CRCL calculation 24 ml/min; Estimated Glomerular Filt Rate 31; Glucose 84 mg/dL (65-110); Phosphorus 2.6 mg/dL (2.5-4.5); Potassium 2.9 mmol/L (3.4-5.0); Sodium 138 mmol/L (137-145)
[2022-05-30] MEDS: cefTRIAXone 2 GM in SODIUM CHLORIDE 0.9% IV 100 ML 200 ML IVPB (08:17)
[2022-05-30 09:13] LABS: Hematocrit 33.4 % (37.0-47.0); Hemoglobin 10.7 g/dL (12.0-15.0); Mean Corpuscular Volume 96.8 fl (80-100); Mean Platelet Volume 12.2 fl (7.4-10.4); Platelet Count Result 308 k/mm3 (150-375); Red Blood Count 3.45 M/mm3 (4.2-5.4); Red Cell Distribution Width 15.5 % (11.5-14.5); White Blood Count 8.9 K/mm3 (4.5-10.0)
[2022-05-30] MEDS: ENOXAPARIN 30 MG/0.3 ML SYRINGE SUB-Q (09:26)
--- NOTE | 2022-05-30 10:08 | PM.IMPN ---
Progress Note: A&P Assessment and Plan (1) Metastatic disease: Code(s): C79.9 - Secondary malignant neoplasm of unspecified site Status: Acute Assessment and Plan: ordered an ultrasound guided left breast biopsy. Ca 15 markers. Oncology consult -patient is open to getting a breast biopsy to find out the etiology of the mass. The patient is open to hospice and comfort measures. (2) Hypercalcemia: Code(s): E83.52 - Hypercalcemia Status: Acute Assessment and Plan: Calcium most likely is elevated due to her metastatic bone lesions. continue IV hydration for now. Monitor creatinine closely will start bisphosphonate once kidney stabilizes (3) Acute hypokalemia: Code(s): E87.6 - Hypokalemia Status: Acute Assessment and Plan: The patient has been on lisinopril with hydrochlorothiazide. She had a replacement potassium in the emergency room. Check magnesium and potassium again potassium 2.9 will recheck again (4) Acute renal failure: Code(s): N17.9 - Acute kidney failure, unspecified Status: Acute Assessment and Plan: -renal ultrasound has been ordered. Nephrology has been consulted. Continue with IV fluids. Creatinine 1.7. (5) Pathologic compression fracture of spine: Code(s): M48.50XA - Collapsed vertebra, not elsewhere classified, site unspecified, initial encounter for fracture Status: Acute Assessment and Plan: possibly due to the widely metastatic cancer origin unknown breast forces multiple myeloma. Next item neurosurgical consult (6) Confusion: Code(s): R41.0 - Disorientation, unspecified Status: Acute Assessment and Plan: MRI of the brain with and without contrast rule out Mets. May need spinal tap to confirm metastatic disease symptoms do not improve Plan DVT prophylaxis. GI prophylaxis. All records reviewed Discussed plan of care with the nursing staff and with the patient in detail. Answered all questions and concerns from the patient. All labs have been reviewed. Code status updated Spoke to patient and family at length answered all questions patient waiting to talk to the oncologist before he makes a final decision about hospice versus palliative management dictation may have been done utilizing a voice recognition system. Attempts have been made to correct errors. However, there may be uncorrected grammatical, spelling, and recognition errors present. Subjective Date/time seen: 05/30/22 10:08 Interval history: Patient remain in bed comfortably no chest pain or shortness of breath occasional cough Review of Systems Review of Systems: All systems reviewed & are unremarkable except as noted in HPI and below Exam Const: General: comfortable HENMT: Ears: TM's normal bilaterally Eyes: General: appearance normal, both eyes and all related structures Neck: Neck: supple Thyroid: thyroid normal Resp: Effort & Inspection: normal respiratory effort Cardio: Rate: regular rate Rhythm: regular rhythm GI: Inspection: distended GI Palp: Yes Soft to palpation Extrem: General: normal to inspection Psych: Other: left breast mass Objective Data Vital Signs Vital Signs: Vital Signs - 24 hr 05/29/22 12:00 05/29/22 14:00 05/29/22 16:00 Temperature 36.7 C Pulse Rate 72 71 74 Respiratory Rate 17 Blood Pressure 133/74 Pulse Oximetry 93 Oxygen Delivery 05/29/22 21:40 05/29/22 20:00 05/30/22 00:00 Temperature 36.4 C L Pulse Rate 70 70 72 Respiratory Rate 16 Blood Pressure 122/60 Pulse Oximetry 94 Oxygen Delivery 05/30/22 03:58 05/30/22 06:00 05/30/22 08:00 Temperature 36.1 C L Pulse Rate 71 64 59 L Respiratory Rate 16 Blood Pressure 128/69 Pulse Oximetry 94 Oxygen Delivery 05/30/22 08:21 Temperature Pulse Rate 59 L Respiratory Rate 16 Blood Pressure Pulse Oximetry 94 Oxygen Delivery Room Air
--- NOTE | 2022-05-30 12:15 | PM.PNNEP ---
Progress Note: A&P Assessment and Plan (1) BHARGAVI (acute kidney injury): Code(s): N17.9 - Acute kidney failure, unspecified Status: Acute Assessment and Plan: improving etiology not clear suspicion falls on volume depletion and/or hypercalcemia likely further worsened by use of JONAS-I and HCTZ evaluation to date: renal ultrasound normal aside from a 6.3cm cyst urine electrolytes pending urine eosinophils negative continue IVF hydration for now follow repeat labs and UOP (2) Hypercalcemia: Code(s): E83.52 - Hypercalcemia Status: Acute Assessment and Plan: most likely secondary to metastatic bone lesions SPEP, UPEP, and serum/urine immunofixation (since multiple myeloma is also possible) pending likely will need bisphosphonate therapy versus zometa but would hold off until renal function normalizes/stabilizes improvement noted with IVF hydration if calcium fails to normalize or becomes symptomatic, consider SQ calcitonin (3) Hypokalemia: Code(s): E87.6 - Hypokalemia Status: Acute Assessment and Plan: continue aggressive repletion magnesium normal follow trend of repeat K+ levels (4) Hypertension: Code(s): I10 - Essential (primary) hypertension Status: Acute Assessment and Plan: reasonably control at this time holding JONAS-I/HCTZ at this time due to #1 PRN hydralazine ordered (5) Metastatic breast cancer: Code(s): C50.919 - Malignant neoplasm of unspecified site of unspecified female breast Status: Acute Assessment and Plan: very likely given evidence to date CT scan with 4.6 x 2.6cm mass on left breast CT scan with multiple lytic bone lesions also Hem/Onc recommendations noted breast biopsy to be done follow up on bone scan Will continue to follow. Subjective Date/time seen: 05/30/22 12:15 Seems to be doing reasonably well at this time; calcium level as well as renal function continue to improve with current interventions; no apparent distress voiced; no other issues/events overnight or earlier this morning to report. Exam Narrative: General: Elderly female in NAD Heart: normal S1 and S2; no rub Lungs: clear to auscultation Abdomen: soft, nontender, nondistended, positive bowel sounds Extremities: no cyanosis or clubbing; no edema Skin: warm and dry Objective Data Vital Signs Vital Signs: Vital Signs Temp Pulse Resp BP Pulse Ox O2 Del Method 05/30/22 12:00 67 05/30/22 08:21 59 L 16 94 Room Air 05/30/22 08:00 59 L 05/30/22 06:00 36.1 C L 64 16 128/69 94 05/30/22 03:58 71 05/30/22 00:00 72 05/29/22 20:00 70 05/29/22 21:40 36.4 C L 70 16 122/60 94 05/29/22 16:00 74 05/29/22 14:00 36.7 C 71 17 133/74 93 Intake/Output Intake/Output: Intake & Output 05/27/22 05/28/22 05/29/22 05/30/22 23:59 23:59 23:59 23:59 Intake Total 3252 2550 Output Total 1300 600 Balance 1952 1950 Meds/Results Medications: Active Medications Generic Name Dose Route Start Last Admin Trade Name Freq PRN Reason Stop Dose Admin Albuterol 2 puff 05/29/22 00:35 Albuterol Sulfate (*Sp) Aerosol 1 Puff INHALATION Q6HRT PRN Shortness Of Breath Enoxaparin Sodium 30 mg 05/30/22 09:00 05/30/22 09:26 Enoxaparin 30 Mg/0.3 Ml Syringe SUB-Q 30 mg DAILY KELLIE Administration Hydralazine HCl 10 mg 05/29/22 00:32 Hydralazine Hcl 20 Mg/Ml Vial IV PUSH Q8H PRN Blood Pressure - High Sodium Chloride 1,000 mls @ 80 mls/hr 05/28/22 16:40 05/30/22 11:46 Normal Saline Iv IV CONT 80 mls/hr .[id number] KELLIE Infusion Ceftriaxone Sodium 2 gm/ 100 mls @ 200 mls/hr 05/29/22 08:00 05/30/22 08:47 Sodium Chloride IVPB Infused Q24H KELLIE Infusion Azithromycin 500 mg in 250 mls @ 250 mls/hr 05/29/22 09:00 05/30/22 10:26 Zithromax IVPB Infused Q24H KELLIE
--- NOTE | 2022-05-30 12:15 | P.PNNP_ITS ---
Progress Note: A&P Assessment and Plan (1) BHARGAVI (acute kidney injury): Code(s): N17.9 - Acute kidney failure, unspecified Status: Acute Assessment and Plan: * improving * etiology not clear * suspicion falls on volume depletion and/or hypercalcemia * likely further worsened by use of JONAS-I and HCTZ * evaluation to date: * renal ultrasound normal aside from a 6.3cm cyst * urine electrolytes pending * urine eosinophils negative * continue IVF hydration for now * follow repeat labs and UOP (2) Hypercalcemia: Code(s): E83.52 - Hypercalcemia Status: Acute Assessment and Plan: * most likely secondary to metastatic bone lesions * SPEP, UPEP, and serum/urine immunofixation (since multiple myeloma is also possible) pending * likely will need bisphosphonate therapy versus zometa but would hold off until renal function normalizes/stabilizes * improvement noted with IVF hydration * if calcium fails to normalize or becomes symptomatic, consider SQ calcitonin (3) Hypokalemia: Code(s): E87.6 - Hypokalemia Status: Acute Assessment and Plan: * continue aggressive repletion * magnesium normal * follow trend of repeat K+ levels (4) Hypertension: Code(s): I10 - Essential (primary) hypertension Status: Acute Assessment and Plan: * reasonably control at this time * holding JONAS-I/HCTZ at this time due to #1 * PRN hydralazine ordered (5) Metastatic breast cancer: Code(s): C50.919 - Malignant neoplasm of unspecified site of unspecified female breast Status: Acute Assessment and Plan: * very likely given evidence to date * CT scan with 4.6 x 2.6cm mass on left breast * CT scan with multiple lytic bone lesions also * Hem/Onc recommendations noted * breast biopsy to be done * follow up on bone scan Will continue to follow. Subjective Date/time seen: 05/30/22 12:15 Seems to be doing reasonably well at this time; calcium level as well as renal function continue to improve with current interventions; no apparent distress voiced; no other issues/events overnight or earlier this morning to report. Exam Narrative: General: Elderly female in NAD Heart: normal S1 and S2; no rub Lungs: clear to auscultation Abdomen: soft, nontender, nondistended, positive bowel sounds Extremities: no cyanosis or clubbing; no edema Skin: warm and dry Objective Data Vital Signs Vital Signs: Vital Signs Temp Pulse Resp BP Pulse Ox O2 Del Method 05/30/22 12:00 67 05/30/22 08:21 59 L 16 94 Room Air 05/30/22 08:00 59 L 05/30/22 06:00 36.1 C L 64 16 128/69 94 05/30/22 03:58 71 05/30/22 00:00 72 05/29/22 20:00 70 05/29/22 21:40 36.4 C L 70 16 122/60 94 05/29/22 16:00 74 05/29/22 14:00 36.7 C 71 17 133/74 93 Intake/Output Intake/Output: Intake & Output 05/27/22 05/28/22 05/29/22 05/30/22 23:59 23:59 23:59 23:59 Intake Total 3252 2550 Output Total 1300 600 Balance 1951 1949 Meds/Results Medications: Active Medications Generic Name Dose Route Start Last Admin Trade
--- NOTE | 2022-05-30 12:29 | PCPTNOTE ---
Spoke with orthopedic MD this date regarding therapy orders and bedrest orders. He reported that from his standpoint patient is okay to get up with therapy, however to talk with neurosurgeon to determine if pt is okay to be up and moving. PT has a call out to neurosurgeon however has not yet heard back.
[2022-05-30 18:29] LABS: Anion Gap 5 mmol/L (8-16); Blood Urea Nitrogen 23 mg/dL (7-17); Calcium 11.1 mg/dL (8.4-10.2); Carbon Dioxide 25 mmol/L (22-30); Chloride 105 mmol/L (98-107); Estimated CRCL calculation 24 ml/min; Estimated Glomerular Filt Rate 31; Glucose 100 mg/dL (65-110); Potassium 2.6 mmol/L (3.4-5.0); Sodium 135 mmol/L (137-145)
[2022-05-30] MEDS: POTASSIUM CHLORIDE INJ 40 MEQ in SODIUM CHLORIDE 0.9% IV 500 ML 130 MEQ IVPB (18:52)
[2022-05-31] VITALS (10 sets, daily range): BP systolic 127–146; BP diastolic 69–89; PULSE 42–80; RESP 14–18; TEMP 36.3–36.7; O2SAT 94–97
[2022-05-31] MEDS: SODIUM CHLORIDE 0.9% IV 1,000 ML 75 ML IV CONT ×2 (02:12→16:30)
[2022-05-31 05:00] LABS: Albumin Level 3.2 g/dL (3.5-5.1); Anion Gap 8 mmol/L (8-16); Blood Urea Nitrogen 21 mg/dL (7-17); Calcium 10.7 mg/dL (8.4-10.2); Carbon Dioxide 24 mmol/L (22-30); Chloride 108 mmol/L (98-107); Estimated CRCL calculation 27 ml/min; Estimated Glomerular Filt Rate 36; Glucose 91 mg/dL (65-110); Phosphorus 2.7 mg/dL (2.5-4.5); Sodium 140 mmol/L (137-145)
[2022-05-31] MEDS: LEVOTHYROXINE SODIUM 50 MCG TABLET PO (05:59)
[2022-05-31] MEDS: POTASSIUM CHLORIDE 20 MEQ TABLET 60 MEQ PO (08:20)
[2022-05-31] MEDS: cefTRIAXone 2 GM in SODIUM CHLORIDE 0.9% IV 100 ML 200 ML IVPB (08:20)
[2022-05-31] MEDS: SIMETHICONE 80 MG TAB.CHEW PO ×2 (08:28→14:20)
[2022-05-31] MEDS: ENOXAPARIN 30 MG/0.3 ML SYRINGE SUB-Q (08:29)
--- NOTE | 2022-05-31 10:04 | PM.IMPN ---
Progress Note: A&P Assessment and Plan (1) Metastatic breast cancer: Code(s): C50.919 - Malignant neoplasm of unspecified site of unspecified female breast Status: Acute Assessment and Plan: very likely given evidence to date CT scan with 4.6 x 2.6cm mass on left breast CT scan with multiple lytic bone lesions also Hem/Onc recommendations noted breast biopsy to be done follow up on bone scan Will continue to follow. (2) Metastatic disease: Code(s): C79.9 - Secondary malignant neoplasm of unspecified site Status: Acute Assessment and Plan: ordered an ultrasound guided left breast biopsy. Ca 15 markers. Oncology consult -patient is open to getting a breast biopsy to find out the etiology of the mass. The patient is open to hospice and comfort measures. (3) Acute renal failure: Code(s): N17.9 - Acute kidney failure, unspecified Status: Acute Assessment and Plan: Nephrology has been consulted. Continue with IV fluids. Creatinine 1.7. (4) Pathologic compression fracture of spine: Code(s): M48.50XA - Collapsed vertebra, not elsewhere classified, site unspecified, initial encounter for fracture Status: Acute Assessment and Plan: possibly due to the widely metastatic cancer origin unknown breast verses multiple myeloma. Plan Spoke to patient and family at length answered all questions patient waiting to talk to the oncologist before he makes a final decision about hospice versus palliative management Subjective Date/time seen: 05/31/22 10:04 No overnight issues Review of Systems Review of Systems: All systems reviewed & are unremarkable except as noted in HPI and below Exam Narrative: General: Elderly female in NAD Heart: normal S1 and S2; no rub Lungs: clear to auscultation Abdomen: soft, nontender, nondistended, positive bowel sounds Extremities: no cyanosis or clubbing; no edema Skin: warm and intact Objective Data Vital Signs Vital Signs: Vital Signs - 24 hr 05/30/22 12:00 05/30/22 14:19 05/30/22 16:00 Temperature 98.2 F Pulse Rate 67 75 66 Respiratory Rate 16 Blood Pressure 114/71 Pulse Oximetry 95 05/30/22 22:48 05/30/22 20:00 05/31/22 00:00 Temperature 97.1 F L Pulse Rate 65 69 69 Respiratory Rate 18 Blood Pressure 125/62 Pulse Oximetry 95 05/31/22 04:00 05/31/22 06:00 Temperature 97.4 F L Pulse Rate 62 69 Respiratory Rate 16 Blood Pressure 131/75 Pulse Oximetry 94 Intake/Output Intake/Output: Intake & Output 05/28/22 05/29/22 05/30/22 05/31/22 23:59 23:59 23:59 23:59 Intake Total 3252 / 3252 3090 / 3090 1400 / 1400 Output Total 1300 / 1300 1000 / 1000 1300 / 1300 Balance 1953 / 1951 2089 / 2089 100 / 100 Meds/Results Medications: Active Medications Generic Name Dose Route Start Last Admin Trade Name Freq PRN Reason Stop Dose Admin Albuterol 2 puff 05/29/22 00:35 Albuterol Sulfate (*Sp) Aerosol 1 Puff INHALATION Q6HRT PRN Shortness Of Breath Enoxaparin Sodium 30 mg 05/30/22 09:00 05/31/22 08:29 Enoxaparin 30 Mg/0.3 Ml Syringe SUB-Q 30 mg DAILY KELLIE Administration Hydralazine HCl 10 mg 05/29/22 00:32 Hydralazine Hcl 20 Mg/Ml Vial IV PUSH Q8H PRN Blood Pressure - High Sodium Chloride 1,000 mls @ 75 mls/hr 05/28/22 16:40 05/31/22 09:34 Normal Saline Iv IV CONT 0 mls/hr .[id number] KELLIE Infusion Ceftriaxone Sodium 2 gm/ 100 mls @ 200 mls/hr 05/29/22 08:00 05/31/22 08:50 Sodium Chloride IVPB Infused Q24H KELLIE Infusion Azithromycin 500 mg in 250 mls @ 250 mls/hr 05/29/22 09:00 05/31/22 09:35 Zithromax IVPB 250 mls/hr Q24H KELLIE Administration Levothyroxine Sodium 50 mcg 05/30/22 06:30 05/31/22 05:59 Levothyroxine Sodium 50 Mcg Tablet PO 50 mcg DAILY@0630 KELLIE Administration Lorazepam 0.5 mg 05/29/22 00:43 Lorazepam Inj (*Crx) 2 Mg/Ml Vial
--- NOTE | 2022-05-31 10:40 | PCPTNOTE ---
PT spoke with neurosurgeon this date who reported that she did not feel that bedrest was needed at that pt was okay to get up with therapy. She reports that a TLSO would be only for comfort reasons and that the patient wasn't sure she even wanted one. Neurosurgeon also reported that she did not want patient lifting more than 10 pounds and no bending/twisting movements. Neurosurgeon reported that she was not in charge of pt's overall care so she recommended talking to the MD who was regarding bedrest orders as PT informed her that PT is unable to remove orders.
--- NOTE | 2022-05-31 10:45 | PM.IMPN ---
Progress Note: A&P Assessment and Plan (1) Metastatic breast cancer: Code(s): C50.919 - Malignant neoplasm of unspecified site of unspecified female breast Status: Acute Assessment and Plan: very likely given evidence to date CT scan with 4.6 x 2.6cm mass on left breast CT scan with multiple lytic bone lesions also Hem/Onc recommendations noted breast biopsy to be done follow up on bone scan Will continue to follow. (2) Metastatic disease: Code(s): C79.9 - Secondary malignant neoplasm of unspecified site Status: Acute Assessment and Plan: ordered an ultrasound guided left breast biopsy. Ca 15 markers. Oncology consult -patient is open to getting a breast biopsy to find out the etiology of the mass. The patient is open to hospice and comfort measures. (3) Acute renal failure: Code(s): N17.9 - Acute kidney failure, unspecified Status: Acute Assessment and Plan: Nephrology has been consulted. Continue with IV fluids. Creatinine 1.7. (4) Pathologic compression fracture of spine: Code(s): M48.50XA - Collapsed vertebra, not elsewhere classified, site unspecified, initial encounter for fracture Status: Acute Assessment and Plan: possibly due to the widely metastatic cancer origin unknown breast verses multiple myeloma. Plan Spoke to patient and family at length answered all questions patient waiting to talk to the oncologist before he makes a final decision about hospice versus palliative management Subjective Date/time seen: 05/31/22 10:45 no issues at present Review of Systems Review of Systems: All systems reviewed & are unremarkable except as noted in HPI and below Exam Narrative: General: Elderly female in NAD Heart: normal S1 and S2; no rub Lungs: clear to auscultation Abdomen: soft, nontender, nondistended, positive bowel sounds Extremities: no cyanosis or clubbing; no edema Skin: warm and dry Objective Data Vital Signs Vital Signs: Vital Signs - 24 hr 05/30/22 12:00 05/30/22 14:19 05/30/22 16:00 Temperature 98.2 F Pulse Rate 67 75 66 Respiratory Rate 16 Blood Pressure 114/71 Pulse Oximetry 95 05/30/22 22:48 05/30/22 20:00 05/31/22 00:00 Temperature 97.1 F L Pulse Rate 65 69 69 Respiratory Rate 18 Blood Pressure 125/62 Pulse Oximetry 95 05/31/22 04:00 05/31/22 06:00 Temperature 97.4 F L Pulse Rate 62 69 Respiratory Rate 16 Blood Pressure 131/75 Pulse Oximetry 94 Intake/Output Intake/Output: Intake & Output 05/28/22 05/29/22 05/30/22 05/31/22 23:59 23:59 23:59 23:59 Intake Total 3252 / 3252 3090 / 3090 1400 / 1400 Output Total 1300 / 1300 1000 / 1000 1300 / 1300 Balance 1953 / 1953 2089 / 2089 100 / 100 Meds/Results Medications: Active Medications Generic Name Dose Route Start Last Admin Trade Name Freq PRN Reason Stop Dose Admin Albuterol 2 puff 05/29/22 00:35 Albuterol Sulfate (*Sp) Aerosol 1 Puff INHALATION Q6HRT PRN Shortness Of Breath Enoxaparin Sodium 30 mg 05/30/22 09:00 05/31/22 08:29 Enoxaparin 30 Mg/0.3 Ml Syringe SUB-Q 30 mg DAILY KELLIE Administration Hydralazine HCl 10 mg 05/29/22 00:32 Hydralazine Hcl 20 Mg/Ml Vial IV PUSH Q8H PRN Blood Pressure - High Sodium Chloride 1,000 mls @ 75 mls/hr 05/28/22 16:40 05/31/22 09:34 Normal Saline Iv IV CONT 0 mls/hr .[id number] KELLIE Infusion Ceftriaxone Sodium 2 gm/ 100 mls @ 200 mls/hr 05/29/22 08:00 05/31/22 08:50 Sodium Chloride IVPB Infused Q24H KELLIE Infusion Azithromycin 500 mg in 250 mls @ 250 mls/hr 05/29/22 09:00 05/31/22 09:35 Zithromax IVPB 250 mls/hr Q24H KELLIE Administration Levothyroxine Sodium 50 mcg 05/30/22 06:30 05/31/22 05:59 Levothyroxine Sodium 50 Mcg Tablet PO 50 mcg DAILY@0630 KELLIE Administration Lorazepam 0.5 mg 05/29/22 00:43 Lorazepam Inj (*Crx) 2 Mg/Ml Vial I
--- NOTE | 2022-05-31 11:59 | PCPTNOTE ---
Bedrest orders have been removed, and PT attempted evaluation this date however pt declined.
--- NOTE | 2022-05-31 12:04 | P.PNNP_ITS ---
Progress Note: A&P Assessment and Plan (1) BHARGAVI (acute kidney injury): Code(s): N17.9 - Acute kidney failure, unspecified Status: Acute Assessment and Plan: * improving * etiology not clear * suspicion falls on volume depletion and/or hypercalcemia * likely further worsened by use of JONAS-I and HCTZ * evaluation to date: * renal ultrasound normal aside from a 6.3cm cyst * urine electrolytes incompleted - will recheck * urine eosinophils negative * continue IVF hydration for now * follow repeat labs and UOP (2) Hypercalcemia: Code(s): E83.52 - Hypercalcemia Status: Acute Assessment and Plan: * most likely secondary to metastatic bone lesions * SPEP, UPEP, and serum/urine immunofixation (since multiple myeloma is also possible) pending * likely will need bisphosphonate therapy versus zometa but would hold off until renal function normalizes/stabilizes * improvement noted with IVF hydration * if calcium fails to normalize or becomes symptomatic, consider SQ calcitonin (3) Hypokalemia: Code(s): E87.6 - Hypokalemia Status: Acute Assessment and Plan: * continue aggressive repletion * magnesium normal * follow trend of repeat K+ levels (4) Hypertension: Code(s): I10 - Essential (primary) hypertension Status: Acute Assessment and Plan: * reasonably control at this time * holding JONAS-I/HCTZ at this time due to #1 * PRN hydralazine ordered (5) Metastatic breast cancer: Code(s): C50.919 - Malignant neoplasm of unspecified site of unspecified female breast Status: Acute Assessment and Plan: * very likely given evidence to date * CT scan with 4.6 x 2.6cm mass on left breast * CT scan with multiple lytic bone lesions also * Hem/Onc recommendations noted * breast biopsy to be done * follow up on bone scan Will continue to follow. Subjective Date/time seen: 05/31/22 12:04 Renal function and calcium continues to improve with current interventions (gentle IVFs, holding JONAS-I + HCTZ); still having issues with hypokalemia by trend of labs; no other acute issues/events overnight or earlier this morning; no apparent distress voiced at the time of my visit. Exam Narrative: General: Elderly female in NAD Heart: normal S1 and S2; no rub Lungs: clear to auscultation Abdomen: soft, nontender, nondistended, positive bowel sounds Extremities: no cyanosis or clubbing; no edema Skin: warm and intact Objective Data Vital Signs Vital Signs: Vital Signs Temp Pulse Resp BP Pulse Ox O2 Del Method 05/31/22 08:00 42 L 05/31/22 08:29 16 94 Room Air 05/31/22 06:00 36.3 C L 69 16 131/75 94 05/31/22 04:00 62 05/31/22 00:00 69 05/30/22 20:00 69 05/30/22 22:48 36.2 C L 65 18 125/62 95 05/30/22 16:00 66 05/30/22 14:19 36.8 C 75 16 114/71 95 Intake/Output Intake/Output: Intake & Output 05/28/22 05/29/22 05/30/22 05/31/22 23:59 23:59 23:59 23:59 Intake Total 3252 3090 1650 Output Total 1300 1000 1300 Balance 1951 2089 350 Meds/Results Medications: Active Medications Generic Name
--- NOTE | 2022-05-31 12:04 | PM.PNNEP ---
Progress Note: A&P Assessment and Plan (1) BHARGAVI (acute kidney injury): Code(s): N17.9 - Acute kidney failure, unspecified Status: Acute Assessment and Plan: improving etiology not clear suspicion falls on volume depletion and/or hypercalcemia likely further worsened by use of JONAS-I and HCTZ evaluation to date: renal ultrasound normal aside from a 6.3cm cyst urine electrolytes incompleted - will recheck urine eosinophils negative continue IVF hydration for now follow repeat labs and UOP (2) Hypercalcemia: Code(s): E83.52 - Hypercalcemia Status: Acute Assessment and Plan: most likely secondary to metastatic bone lesions SPEP, UPEP, and serum/urine immunofixation (since multiple myeloma is also possible) pending likely will need bisphosphonate therapy versus zometa but would hold off until renal function normalizes/stabilizes improvement noted with IVF hydration if calcium fails to normalize or becomes symptomatic, consider SQ calcitonin (3) Hypokalemia: Code(s): E87.6 - Hypokalemia Status: Acute Assessment and Plan: continue aggressive repletion magnesium normal follow trend of repeat K+ levels (4) Hypertension: Code(s): I10 - Essential (primary) hypertension Status: Acute Assessment and Plan: reasonably control at this time holding JONAS-I/HCTZ at this time due to #1 PRN hydralazine ordered (5) Metastatic breast cancer: Code(s): C50.919 - Malignant neoplasm of unspecified site of unspecified female breast Status: Acute Assessment and Plan: very likely given evidence to date CT scan with 4.6 x 2.6cm mass on left breast CT scan with multiple lytic bone lesions also Hem/Onc recommendations noted breast biopsy to be done follow up on bone scan Will continue to follow. Subjective Date/time seen: 05/31/22 12:04 Renal function and calcium continues to improve with current interventions (gentle IVFs, holding JONAS-I + HCTZ); still having issues with hypokalemia by trend of labs; no other acute issues/events overnight or earlier this morning; no apparent distress voiced at the time of my visit. Exam Narrative: General: Elderly female in NAD Heart: normal S1 and S2; no rub Lungs: clear to auscultation Abdomen: soft, nontender, nondistended, positive bowel sounds Extremities: no cyanosis or clubbing; no edema Skin: warm and intact Objective Data Vital Signs Vital Signs: Vital Signs Temp Pulse Resp BP Pulse Ox O2 Del Method 05/31/22 08:00 42 L 05/31/22 08:29 16 94 Room Air 05/31/22 06:00 36.3 C L 69 16 131/75 94 05/31/22 04:00 62 05/31/22 00:00 69 05/30/22 20:00 69 05/30/22 22:48 36.2 C L 65 18 125/62 95 05/30/22 16:00 66 05/30/22 14:19 36.8 C 75 16 114/71 95 Intake/Output Intake/Output: Intake & Output 05/28/22 05/29/22 05/30/22 05/31/22 23:59 23:59 23:59 23:59 Intake Total 3252 3090 1650 Output Total 1300 1000 1300 Balance 1951 2089 350 Meds/Results Medications: Active Medications Generic Name Dose Route Start Last Admin Trade Name Freq PRN Reason Stop Dose Admin Albuterol 2 puff 05/29/22 00:35 Albuterol Sulfate (*Sp) Aerosol 1 Puff INHALATION Q6HRT PRN Shortness Of Breath Enoxaparin Sodium 30 mg 05/30/22 09:00 05/31/22 08:29 Enoxaparin 30 Mg/0.3 Ml Syringe SUB-Q 30 mg DAILY KELLIE Administration Hydralazine HCl 10 mg 05/29/22 00:32 Hydralazine Hcl 20 Mg/Ml Vial IV PUSH Q8H PRN Blood Pressure - High Sodium Chloride 1,000 mls @ 75 mls/hr 05/28/22 16:40 05/31/22 10:35 Normal Saline Iv IV CONT 75 mls/hr .[id number] KELLIE Infusion Ceftriaxone Sodium 2 gm/ 100 mls @ 200 mls/hr 05/29/22 08:00 05/31/22 08:50 Sodium Chloride IVPB Infused Q24H KELLIE Infusion Azithromycin 500 mg in 250 mls @ 250 mls/hr 05/29/22 09:00
[2022-05-31] MEDS: POTASSIUM CHLORIDE 20 MEQ TABLET 40 MEQ PO (12:41)
[2022-05-31 17:42] LABS: Anion Gap 6 mmol/L (8-16); Blood Urea Nitrogen 18 mg/dL (7-17); Carbon Dioxide 21 mmol/L (22-30); Chloride 111 mmol/L (98-107); Estimated CRCL calculation 29 ml/min; Estimated Glomerular Filt Rate 39; Glucose 84 mg/dL (65-110); Sodium 138 mmol/L (137-145)
[2022-06-01] VITALS (9 sets, daily range): BP systolic 110–145; BP diastolic 60–88; PULSE 63–82; RESP 18–20; TEMP 36.4–36.5; O2SAT 94–96
[2022-06-01 05:30] LABS: Albumin Level 3.4 g/dL (3.5-5.1); Anion Gap 6 mmol/L (8-16); Blood Urea Nitrogen 16 mg/dL (7-17); Calcium 10.6 mg/dL (8.4-10.2); Carbon Dioxide 20 mmol/L (22-30); Chloride 112 mmol/L (98-107); Estimated CRCL calculation 31 ml/min; Estimated Glomerular Filt Rate 43; Glucose 89 mg/dL (65-110); Magnesium 1.7 mg/dL (1.6-2.3); Phosphorus 2.6 mg/dL (2.5-4.5); Potassium 3.5 mmol/L (3.4-5.0); Sodium 138 mmol/L (137-145)
[2022-06-01] MEDS: LEVOTHYROXINE SODIUM 50 MCG TABLET PO (06:11)
[2022-06-01] MEDS: SODIUM CHLORIDE 0.9% IV 1,000 ML 75 ML IV CONT (06:11)
[2022-06-01] MEDS: cefTRIAXone 2 GM in SODIUM CHLORIDE 0.9% IV 100 ML 200 ML IVPB (08:01)
--- NOTE | 2022-06-01 08:10 | PC.NURSE ---
Per wildlife biology technician, hold off on lovenox injection until after breast biopsy is done.
--- NOTE | 2022-06-01 09:09 | PM.IMPN ---
Progress Note: A&P Assessment and Plan (1) Metastatic breast cancer: Code(s): C50.919 - Malignant neoplasm of unspecified site of unspecified female breast Status: Acute Assessment and Plan: CT scan with 4.6 x 2.6cm mass on left breast CT scan with multiple lytic bone lesions also Hem/Onc recommendations noted breast biopsy plan for today bone scan planned (2) Metastatic disease: Code(s): C79.9 - Secondary malignant neoplasm of unspecified site Status: Acute Assessment and Plan: ultrasound guided left breast biopsy. Oncology consulted (3) Acute renal failure: Code(s): N17.9 - Acute kidney failure, unspecified Status: Acute Assessment and Plan: Nephrology has been consulted. Continue with IV fluids. Creatinine improving (4) Pathologic compression fracture of spine: Code(s): M48.50XA - Collapsed vertebra, not elsewhere classified, site unspecified, initial encounter for fracture Status: Acute Assessment and Plan: possibly due to the widely metastatic cancer origin unknown breast verses multiple myeloma. Subjective Date/time seen: 06/01/22 09:09 No overnight issues. No pain Review of Systems Review of Systems: All systems reviewed & are unremarkable except as noted in HPI and below Exam Narrative: General: Elderly female in NAD Heart: normal S1 and S2; no rub Lungs: clear to auscultation Abdomen: soft, nontender, nondistended, positive bowel sounds Extremities: no cyanosis or clubbing; no edema Skin: warm and intact Objective Data Vital Signs Vital Signs: Vital Signs - 24 hr 05/31/22 12:04 05/31/22 14:32 05/31/22 16:00 Temperature 98.0 F Pulse Rate 71 69 65 Respiratory Rate 14 Blood Pressure 127/69 Pulse Oximetry 96 Oxygen Delivery 05/31/22 22:45 05/31/22 20:00 05/31/22 20:00 Temperature 97.5 F L Pulse Rate 73 80 Respiratory Rate 18 Blood Pressure 146/89 H Pulse Oximetry 97 Oxygen Delivery Room Air 06/01/22 00:00 06/01/22 04:00 06/01/22 06:00 Temperature 97.5 F L Pulse Rate 69 66 75 Respiratory Rate 18 Blood Pressure 138/80 Pulse Oximetry 96 Oxygen Delivery Intake/Output Intake/Output: Intake & Output 05/29/22 05/30/22 05/31/22 06/01/22 23:59 23:59 23:59 23:59 Intake Total 3252 / 3252 3090 / 3090 3120 / 3120 1700 / 1700 Output Total 1300 / 1300 1000 / 1000 2074 / 2074 900 / 900 Balance 1951 / 2089 1045 / 1045 800 / 800 Meds/Results Medications: Active Medications Generic Name Dose Route Start Last Admin Trade Name Freq PRN Reason Stop Dose Admin Albuterol 2 puff 05/29/22 00:35 Albuterol Sulfate (*Sp) Aerosol 1 Puff INHALATION Q6HRT PRN Shortness Of Breath Enoxaparin Sodium 30 mg 05/30/22 09:00 05/31/22 08:29 Enoxaparin 30 Mg/0.3 Ml Syringe SUB-Q 30 mg DAILY KELLIE Administration Hydralazine HCl 10 mg 05/29/22 00:32 Hydralazine Hcl 20 Mg/Ml Vial IV PUSH Q8H PRN Blood Pressure - High Sodium Chloride 1,000 mls @ 75 mls/hr 05/28/22 16:40 06/01/22 06:11 Normal Saline Iv IV CONT 75 mls/hr .[id number] KELLIE Administration Ceftriaxone Sodium 2 gm/ 100 mls @ 200 mls/hr 05/29/22 08:00 06/01/22 08:31 Sodium Chloride IVPB Infused Q24H KELLIE Infusion Azithromycin 500 mg in 250 mls @ 250 mls/hr 05/29/22 09:00 06/01/22 08:37 Zithromax IVPB 250 mls/hr Q24H KELLIE Administration Levothyroxine Sodium 50 mcg 05/30/22 06:30 06/01/22 06:11 Levothyroxine Sodium 50 Mcg Tablet PO 50 mcg DAILY@0630 KELLIE Administration Lorazepam 0.5 mg 05/29/22 00:43 Lorazepam Inj (*Crx) 2 Mg/Ml Vial IV PUSH Q6H PRN Anxiety Morphine Sulfate 2 mg 05/29/22 00:43 Morphine Sulfate (*Crx) 2 Mg/Ml Inj IV PUSH Q4H PRN Pain Rated 7-10 Simethicone 80 mg 05/29/22 09:50 05/31/22 14:20 Simethicone 80 Mg Tab.Chew PO 80 mg QID PRN Administration
[2022-06-01] MEDS: ENOXAPARIN 30 MG/0.3 ML SYRINGE SUB-Q (10:13)
--- NOTE | 2022-06-01 15:24 | PM.PNNEP ---
Progress Note: A&P Assessment and Plan (1) BHARGAVI (acute kidney injury): Code(s): N17.9 - Acute kidney failure, unspecified Status: Acute Assessment and Plan: improving etiology not clear suspicion falls on volume depletion and/or hypercalcemia likely further worsened by use of JONAS-I and HCTZ evaluation to date: renal ultrasound normal aside from a 6.3cm cyst urine electrolytes incompleted - will recheck urine eosinophils negative continue IVF hydration for now follow repeat labs and UOP (2) Hypercalcemia: Code(s): E83.52 - Hypercalcemia Status: Acute Assessment and Plan: most likely secondary to metastatic bone lesions SPEP, UPEP, and serum/urine immunofixation (since multiple myeloma is also possible) pending likely will need bisphosphonate therapy versus zometa but would hold off until renal function normalizes/stabilizes improvement noted with IVF hydration if calcium fails to normalize or becomes symptomatic, consider SQ calcitonin (3) Hypokalemia: Code(s): E87.6 - Hypokalemia Status: Acute Assessment and Plan: continue aggressive repletion magnesium normal follow trend of repeat K+ levels (4) Hypertension: Code(s): I10 - Essential (primary) hypertension Status: Acute Assessment and Plan: reasonably control at this time holding JONAS-I/HCTZ at this time due to #1 PRN hydralazine ordered (5) Metastatic breast cancer: Code(s): C50.919 - Malignant neoplasm of unspecified site of unspecified female breast Status: Acute Assessment and Plan: very likely given evidence to date CT scan with 4.6 x 2.6cm mass on left breast CT scan with multiple lytic bone lesions also Hem/Onc recommendations noted breast biopsy to be done bone scan results noted Not much else to add -- will continue to follow from a distance. Subjective Date/time seen: 06/01/22 15:24 Breast biopsy rescheduled for tomorrow; bone scan done with results noted; renal function continues to improve with current interventions as does calcium level; no other acute issues/events overnight or earlier this AM. Exam Narrative: General: Elderly female in NAD Heart: normal S1 and S2; no rub Lungs: clear to auscultation Abdomen: soft, nontender, nondistended, positive bowel sounds Extremities: no cyanosis or clubbing; no edema Skin: warm and intact Objective Data Vital Signs Vital Signs: Vital Signs Temp Pulse Resp BP Pulse Ox O2 Del Method 06/01/22 14:00 36.4 C L 76 18 110/60 96 06/01/22 12:00 63 06/01/22 11:08 Room Air 06/01/22 08:00 72 06/01/22 09:31 Room Air 06/01/22 06:00 36.4 C L 75 18 138/80 96 06/01/22 04:00 66 06/01/22 00:00 69 05/31/22 20:00 80 05/31/22 20:00 Room Air 05/31/22 22:45 36.4 C L 73 18 146/89 H 97 Intake/Output Intake/Output: Intake & Output 05/29/22 05/30/22 05/31/22 06/01/22 23:59 23:59 23:59 23:59 Intake Total 3252 3090 3120 2200 Output Total 1300 1000 2075 1000 Balance 1952 2090 1045 1200 Meds/Results Medications: Active Medications Generic Name Dose Route Start Last Admin Trade Name Freq PRN Reason Stop Dose Admin Albuterol 2 puff 05/29/22 00:35 Albuterol Sulfate (*Sp) Aerosol 1 Puff INHALATION Q6HRT PRN Shortness Of Breath Enoxaparin Sodium 30 mg 05/30/22 09:00 06/01/22 10:13 Enoxaparin 30 Mg/0.3 Ml Syringe SUB-Q 30 mg DAILY KELLIE Administration Hydralazine HCl 10 mg 05/29/22 00:32 Hydralazine Hcl 20 Mg/Ml Vial IV PUSH Q8H PRN Blood Pressure - High Sodium Chloride 1,000 mls @ 75 mls/hr 05/28/22 16:40 06/01/22 06:11 Normal Saline Iv IV CONT 75 mls/hr .[id number] KELLIE Administration Ceftriaxone Sodium 2 gm/ 100 mls @ 200 mls/hr 05/29/22 08:00 06/01/22 08:31 Sodium Chloride IVPB Infused Q24H KELLIE Infusion Azithrom
--- NOTE | 2022-06-01 15:24 | P.PNNP_ITS ---
Progress Note: A&P Assessment and Plan (1) BHARGAVI (acute kidney injury): Code(s): N17.9 - Acute kidney failure, unspecified Status: Acute Assessment and Plan: * improving * etiology not clear * suspicion falls on volume depletion and/or hypercalcemia * likely further worsened by use of JONAS-I and HCTZ * evaluation to date: * renal ultrasound normal aside from a 6.3cm cyst * urine electrolytes incompleted - will recheck * urine eosinophils negative * continue IVF hydration for now * follow repeat labs and UOP (2) Hypercalcemia: Code(s): E83.52 - Hypercalcemia Status: Acute Assessment and Plan: * most likely secondary to metastatic bone lesions * SPEP, UPEP, and serum/urine immunofixation (since multiple myeloma is also possible) pending * likely will need bisphosphonate therapy versus zometa but would hold off until renal function normalizes/stabilizes * improvement noted with IVF hydration * if calcium fails to normalize or becomes symptomatic, consider SQ calcitonin (3) Hypokalemia: Code(s): E87.6 - Hypokalemia Status: Acute Assessment and Plan: * continue aggressive repletion * magnesium normal * follow trend of repeat K+ levels (4) Hypertension: Code(s): I10 - Essential (primary) hypertension Status: Acute Assessment and Plan: * reasonably control at this time * holding JONAS-I/HCTZ at this time due to #1 * PRN hydralazine ordered (5) Metastatic breast cancer: Code(s): C50.919 - Malignant neoplasm of unspecified site of unspecified female breast Status: Acute Assessment and Plan: * very likely given evidence to date * CT scan with 4.6 x 2.6cm mass on left breast * CT scan with multiple lytic bone lesions also * Hem/Onc recommendations noted * breast biopsy to be done * bone scan results noted Not much else to add -- will continue to follow from a distance. Subjective Date/time seen: 06/01/22 15:24 Breast biopsy rescheduled for tomorrow; bone scan done with results noted; renal function continues to improve with current interventions as does calcium level; no other acute issues/events overnight or earlier this AM. Exam Narrative: General: Elderly female in NAD Heart: normal S1 and S2; no rub Lungs: clear to auscultation Abdomen: soft, nontender, nondistended, positive bowel sounds Extremities: no cyanosis or clubbing; no edema Skin: warm and intact Objective Data Vital Signs Vital Signs: Vital Signs Temp Pulse Resp BP Pulse Ox O2 Del Method 06/01/22 14:00 36.4 C L 76 18 110/60 96 06/01/22 12:00 63 06/01/22 11:08 Room Air 06/01/22 08:00 72 06/01/22 09:31 Room Air 06/01/22 06:00 36.4 C L 75 18 138/80 96 06/01/22 04:00 66 06/01/22 00:00 69 05/31/22 20:00 80 05/31/22 20:00 Room Air 05/31/22 22:45 36.4 C L 73 18 146/89 H 97 Intake/Output Intake/Output: Intake & Output 05/29/22 05/30/22 05/31/22 06/01/22 23:59 23:59 23:59 23:59 Intake Total 3252 3090 3120 2200 Output Total 1300 1000 2075 1000 Balance 1952 2090 1045 1200 Meds/Results Medications:
[2022-06-01] MEDS: POTASSIUM CHLORIDE 20 MEQ TABLET PO (19:01)
[2022-06-02] VITALS (9 sets, daily range): BP systolic 136–146; BP diastolic 61–81; PULSE 57–82; RESP 16–20; TEMP 36.4–36.8; O2SAT 92–98
[2022-06-02] MEDS: SODIUM CHLORIDE 0.9% IV 1,000 ML 75 ML IV CONT (01:00)
[2022-06-02 05:41] LABS: Albumin Level 3.2 g/dL (3.5-5.1); Anion Gap 6 mmol/L (8-16); Blood Urea Nitrogen 11 mg/dL (7-17); Calcium 10.3 mg/dL (8.4-10.2); Carbon Dioxide 23 mmol/L (22-30); Chloride 109 mmol/L (98-107); Estimated CRCL calculation 31 ml/min; Estimated Glomerular Filt Rate 43; Glucose 85 mg/dL (65-110); Phosphorus 3.1 mg/dL (2.5-4.5); Potassium 3.2 mmol/L (3.4-5.0); Sodium 138 mmol/L (137-145)
[2022-06-02] MEDS: LEVOTHYROXINE SODIUM 50 MCG TABLET PO (06:29)
[2022-06-02] MEDS: POTASSIUM CHLORIDE 20 MEQ TABLET PO (07:00)
[2022-06-02] MEDS: cefTRIAXone 2 GM in SODIUM CHLORIDE 0.9% IV 100 ML 200 ML IVPB (08:20)
[2022-06-02] MEDS: POTASSIUM CHLORIDE 20 MEQ TABLET 40 MEQ PO (12:16)
[2022-06-02] MEDS: ACETAMINOPHEN 325 MG TABLET 650 MG PO (12:31)
--- NOTE | 2022-06-02 12:43 | PM.IMPN ---
Progress Note: A&P Assessment and Plan (1) Metastatic breast cancer: Code(s): C50.919 - Malignant neoplasm of unspecified site of unspecified female breast Status: Acute Assessment and Plan: CT scan with 4.6 x 2.6cm mass on left breast Now status post biopsy. CT scan also shows multiple lytic bone lesions. Multiple areas of uptake in the skull, sternum, left glenoid, multiple ribs and pelvis. Plan for patient to follow with Oncology for final pathology results. Completed 5 days of rocephin and Azithro. Will stop abx. (2) Metastatic disease: Code(s): C79.9 - Secondary malignant neoplasm of unspecified site Status: Acute Assessment and Plan: As above (3) Acute renal failure: Code(s): N17.9 - Acute kidney failure, unspecified Status: Acute Assessment and Plan: Cr 2.2 On admission felt related to her medications and probably poor oral intake. With IV fluids, her creatinine has trended down to 1.2. Appreciate Nephrology input. Will stop IV fluids. Blood pressure reasonable. Will not resume lisinopril -HCTZ at time of discharge. (4) Pathologic compression fracture of spine: Code(s): M48.50XA - Collapsed vertebra, not elsewhere classified, site unspecified, initial encounter for fracture Status: Acute Assessment and Plan: Due to widely metastatic cancer with origin unknown but probably breast verses multiple myeloma vs lung. Pathologic fracture noted at the junction of the inferior pubic ramus and acetabulum and a superior pubic ramus fracture. She should be touch weight-bearing on the right leg until healing occurs per ortho.??Appreciate Orthopedic input. Patient also with a multiple pathologic fractures of the spine. your surgery was consulted and recommended TLSO brace. Patient want to wait for biopsy results before deciding on the brace. Continue PT and OT. (5) Hypercalcemia: Code(s): E83.52 - Hypercalcemia Status: Acute Assessment and Plan: Calcium was 14.5 on admission. Patient was treated with IV fluids. Calcium level has trended downward to almost normal at 10.3. [place] related to above. (6) Tobacco abuse: Code(s): Z72.0 - Tobacco use Status: Acute Assessment and Plan: She was educated about the benefits of smoking cessation. (7) Hypertension: Code(s): I10 - Essential (primary) hypertension Status: Acute Assessment and Plan: Blood pressure stable. Her lisinopril -HCTZ has been on hold. Continue to monitor. (8) Hypokalemia: Code(s): E87.6 - Hypokalemia Status: Acute Assessment and Plan: Potassium is 2.3 on admission. This absent replaced. Potassium low again this morning at 3.2. Placement is been ordered. Appreciate Nephrology input. (9) Breast mass, left: Code(s): N63.20 - Unspecified lump in the left breast, unspecified quadrant Status: Acute Assessment and Plan: As above. Status post biopsy. Follow-up on results. (10) Pathologic fracture of acetabulum: Code(s): M84.454A - Pathological fracture, pelvis, initial encounter for fracture Status: Acute Assessment and Plan: As above. (11) Hypothyroidism: Code(s): E03.9 - Hypothyroidism, unspecified Status: Acute Assessment and Plan: TSH 49.2. Synthroid started. Could be contributing to her hypercalcemia. Will need repeat TSH in 4-6 weeks Subjective Date/time seen: 06/02/22 12:43 Interval history: 81yo female with HTN and ongoing tobacco use here for elevated calcium. Assuming care. Chart reviewed. He does have pain in her breast after the biopsy earlier this morning. She denies back pain. She has been up walking in the room with a walker. Still has a cough that is productive but she feels is related to allergies. Exam Narrative: AF 98.0 136/81 71 20 92% ra Gen - NARD Chest -Aissatou
--- NOTE | 2022-06-02 13:03 | PCOTNOTE ---
Patient and daughter, Sharda, in room. Sharda reports patient just received tylenol for chest pain following biopsy. Patient and daughter requested this KILLIAN return if possible to try to participate in OT later. Patient's daughter also reports to have discussion with hospice. Will continue OT per plan of care.
[2022-06-02] MEDS: LORATADINE 10 MG TABLET PO (15:36)
--- NOTE | 2022-06-02 15:55 | PCPTNOTE ---
The patient treatment was not able to be completed on this date due to patient's daughter stating that patient had a busy morning and has been napping on and off this afternoon. She requested for patient not to be seen for Physical Therapy this afternoon so she could rest. RN notified. Will plan to continue treatment per plan of care.
[2022-06-02 17:12] LABS: Ionized Calcium 6.5 mg/dL (4.8-5.6)
--- NOTE | 2022-06-02 19:41 | P.PNONC_ITS ---
Progress Note: A/P - Additional Plan Metastatic breast cancer status post left breast mass biopsy done. Pathology is pending. Bone scan showed numerous foci of increased uptake corresponding to the innumerable lytic lesion consistent with bone metastasis. CA 15-3 is pending. Patient was provided with my office information for follow-up. Will start treatment with anastrozole and Ibrance after the confirmation of final pathology. Bone metastasis. She will also start treatment with Xgeva as an outpatient. Hypercalcemia. Secondary to bone metastasis. Calcium level has improved. Serum protein electrophoresis pending. - Time Spent With Patient Total time spent is greater than 50% in coordination of care (as documented) at patient's floor/unit and/or counseling patient: 15 - 25 minutes Subjective Interval history: Metastatic breast cancer Review of Systems - Review of Systems Patient is looking quite comfortable. She denies any bone pain. Denies any nausea vomiting. Patient is slightly tired and fatigued. Patient tolerated breast biopsy well. No other new complaint. - Neurologic Reports system reviewed and no additional complaints, except as documented, Rep orts hearing normal Exam Vital signs: Temp Pulse Resp BP Pulse Ox O2 Del Method 36.8 C 57 L 16 146/61 H 98 Room Air 06/02/22 14:00 06/02/22 16:00 06/02/22 14:00 06/02/22 14:00 06/02/22 14:00 06/02/22 08:00 Narrative: Lungs are clear to auscultation bilaterally Cardiovascular regular rate rhythm no murmurs Abdomen soft nontender nondistended bowel sounds are positive Extremities no edema PN: Objective Data - Labs CBC & Chem 7: 05/30/22 04:48 06/02/22 04:28 Labs: Laboratory Results - last 24 hr 05/29/22 06/02/22 04:54 04:28 Sodium 138 Potassium 3.2 L Chloride 109 H Carbon Dioxide 23 Anion Gap 6 L BUN 11 D Creatinine 1.20 H Estim Creat Clear Calc 31 Estimated GFR 43 L Glucose 85 Calcium 10.3 H Ionized Calcium Azar 6.5 H Phosphorus 3.1 Albumin 3.2 L
[2022-06-03] VITALS (7 sets, daily range): BP systolic 130–140; BP diastolic 60–79; PULSE 53–101; RESP 18; TEMP 36.4; O2SAT 93
[2022-06-03 06:02] LABS: Albumin Level 3.3 g/dL (3.5-5.1); Anion Gap 3 mmol/L (8-16); Blood Urea Nitrogen 9 mg/dL (7-17); Calcium 10.3 mg/dL (8.4-10.2); Carbon Dioxide 23 mmol/L (22-30); Chloride 107 mmol/L (98-107); Estimated CRCL calculation 34 ml/min; Estimated Glomerular Filt Rate 47; Glucose 84 mg/dL (65-110); Phosphorus 3.7 mg/dL (2.5-4.5); Potassium 3.7 mmol/L (3.4-5.0); Sodium 133 mmol/L (137-145)
[2022-06-03] MEDS: LEVOTHYROXINE SODIUM 50 MCG TABLET PO (06:18)
[2022-06-03] MEDS: POTASSIUM CHLORIDE 20 MEQ TABLET.ER PO (08:36)
[2022-06-03] MEDS: ENOXAPARIN 30 MG/0.3 ML SYRINGE SUB-Q (08:37)
[2022-06-03] MEDS: LORATADINE 10 MG TABLET PO (08:37)
--- NOTE | 2022-06-03 13:16 | PCOTNOTE ---
Patient and daughter in room. Patient's daughter reports they are waiting for d/c. Patient and daughter refused OT. Will continue plan of care if patient does not d/c.
[2022-06-03 15:14] LABS: CA 15-3 69 U/mL (<32)
--- NOTE | 2022-06-03 15:17 | PM.DS ---
DS: Admitting Diagnosis Discharge Date 06/02/22 Admitting Diagnosis Elevated calcium DS: Discharge Diagnosis Discharge Diagnosis (1) Metastatic breast cancer: Code(s): C50.919 - Malignant neoplasm of unspecified site of unspecified female breast Status: Acute (2) Metastatic disease: Code(s): C79.9 - Secondary malignant neoplasm of unspecified site Status: Acute (3) Acute renal failure: Code(s): N17.9 - Acute kidney failure, unspecified Status: Acute (4) Pathologic compression fracture of spine: Code(s): M48.50XA - Collapsed vertebra, not elsewhere classified, site unspecified, initial encounter for fracture Status: Acute (5) Hypercalcemia: Code(s): E83.52 - Hypercalcemia Status: Acute (6) Tobacco abuse: Code(s): Z72.0 - Tobacco use Status: Acute (7) Hypertension: Code(s): I10 - Essential (primary) hypertension Status: Acute (8) Hypokalemia: Code(s): E87.6 - Hypokalemia Status: Acute (9) Breast mass, left: Code(s): N63.20 - Unspecified lump in the left breast, unspecified quadrant Status: Acute (10) Pathologic fracture of acetabulum: Code(s): M84.454A - Pathological fracture, pelvis, initial encounter for fracture Status: Acute (11) Hypothyroidism: Code(s): E03.9 - Hypothyroidism, unspecified Status: Acute DS: Summary Hospital Course Reason for hospitalization: 81yo female with HTN and ongoing tobacco use here for elevated calcium. Please se H&P for details Hospital Course: Calcium was 14.5 on admission.? Patient was treated with IV fluids.? Calcium level has trended downward to almost normal at 10.3. [place] related to metastatic disease. CT scan with 4.6 x 2.6cm mass on left breast and she underwent breast biopsy. CT scan also shows multiple lytic bone lesions. Bone scan showing multiple areas of uptake in the skull, sternum, left glenoid, multiple ribs and pelvis. CA 15-3 69 and SPEP noted (SIF pending). She completed 5 days of rocephin and Azithro. She had BHARGAVI with Cr 2.2? on admission felt related to her medications and probably poor oral intake.? With IV fluids, her creatinine has trended down to 1.1.? Nephrology consulted and appreciate their input.? We stopped lisinopril-HCTZ and blood pressure remained reasonable.? She had a pathologic fracture of acetabulum and compression fracture of spine. Ortho and neurosurgery consulted. [place] due to widely metastatic cancer with origin unknown but probably breast cancer. ? Pathologic fracture noted at the junction of the inferior pubic ramus and acetabulum and a superior pubic ramus fracture. She should be toe touch weight-bearing on the right leg until healing occurs per ortho.??Patient also with a multiple pathologic fractures of the spine. Neurosurgery was consulted and recommended TLSO brace.? Patient wanted to wait for biopsy results before deciding on the brace. She was educated about the benefits of smoking cessation. Potassium is 2.3 on admission.? This was replaced.?TSH 49.2. Synthroid started. Could be contributing to her hypercalcemia. Will need repeat TSH in 4-6 weeks. She worked with PT/OT and did well. Plan is for her to return home with family asistance. She overall did well and was discharged home on 06/03/22. She will followup with Dr Mott for breast bx results. Status at Discharge Cognitive/behavioral status at discharge: stable Time Spent with Patient Time attestation: Total time spent providing and/or coordinating discharge services:40 minutes Time spent: Greater than 30 minutes Exam Narrative: AF 97.6 140/79 82 18 93% ra Gen - NARD Chest -Lungs clear anteriorly. Left Breast bx site clean and dry. Light brown crusted area noted next to biopsy site CV - RRR S1/S2. Telemetry showing PVCs Abd - Soft, NT/ND, Positive BS Ext - No pedal edema Psych - Nml mood and affect Skin - Warm and dry DS: [place]
[2022-06-03 15:32] LABS: Albumin 2.8 g/dL (3.8-4.8); Alpha 1 Globulin 0.5 g/dL (0.2-0.3); Alpha 2 Globulin 0.7 g/dL (0.5-0.9); Beta 1 Globulin 0.4 g/dL (0.4-0.6); Gamma Globulin 0.9 g/dL (0.8-1.7); Protein, Total 5.6 g/dL (6.1-8.1)
[2022-06-06 00:21] LABS: Total Protein/Creatinine Ratio 345 mg/g creat (24-184)
--- NOTE | 2022-06-10 10:11 | PC.NURSE ---
Faxed pathology report to Dr. Mott. Dr. Del Real aware of findings.
--- NOTE | 2022-06-11 10:30 | PC.NURSE ---
Faxed Pathology report to Dr. Ulrich. Also faxed outpt potassium to Dr. Ulrich. Dr. Del Real aware.
[2022-07-01 15:05] LABS: Creatinine, Random Urine 55 mg/dL
== END 2022-06-03 16:28 | disposition home or self-care (01) | DRG 543 ==
LOC: ANHED 17:58 → ANH2MED 17:59
PROVIDERS: Internal Medicine; Internal Medicine Hematology & Oncology; Internal Medicine Nephrology; Nurse Practitioner; Admitting Provider Internal Medicine; Emergency Provider Emergency Medicine; Visit Provider Internal Medicine
DX: C79.51 Secondary malignant neoplasm of bone (principal); M84.550A Pathological fracture in neoplastic disease, pelvis, initial encounter for fracture; N17.9 Acute kidney failure, unspecified; M84.58XA Pathological fracture in neoplastic disease, other specified site, initial encounter for fracture; C50.012 Malignant neoplasm of nipple and areola, left female breast; E83.52 Hypercalcemia; Z20.822 Contact with and (suspected) exposure to COVID-19; E87.6 Hypokalemia; I10 Essential (primary) hypertension; E03.9 Hypothyroidism, unspecified; F17.210 Nicotine dependence, cigarettes, uncomplicated
CPT/HCPCS: 19083; 36415; 71045; 71250; 73502; 74176; 76775; 78306; 80048; 80053; 80069; 80307; 81001; 82330; 82570; 83735; 83970; 84133; 84155; 84156; 84165; 84166; 84300; 84439; 84443; 85025; 85027; 85999; 86300; 86334; 88305; 88342; 88360; 88365; 93005; 96361; 96366; 96367; 96368; 96372; 96374; 96375; 96376; 97110; 97162; 97166; 97530; 99285; A4648; A9270; A9561; G0378; J0456; J0696; J1650; J3480; J7030; J7040; U0003; U0005

== ENCOUNTER 2022-06-09 11:19 | Outpatient (CLI) | payer MEDICARE, SELFPAY ==
[2022-06-10 01:17] LABS: Albumin Level 3.9 g/dL (3.5-5.1); Anion Gap 8 mmol/L (8-16); Blood Urea Nitrogen 17 mg/dL (7-17); Calcium 11.3 mg/dL (8.4-10.2); Carbon Dioxide 30 mmol/L (22-30); Chloride 103 mmol/L (98-107); Estimated Glomerular Filt Rate 33; Glucose 91 mg/dL (65-110); Phosphorus 4.8 mg/dL (2.5-4.5); Potassium 2.8 mmol/L (3.4-5.0); Sodium 141 mmol/L (137-145)
== END 2022-06-09 11:20 | disposition home or self-care (01) ==
LOC: ANHLAB 11:21
PROVIDERS: Visit Provider Internal Medicine
DX: E87.6 Hypokalemia (principal); E03.9 Hypothyroidism, unspecified
CPT/HCPCS: 36415; 80069

== ENCOUNTER 2022-06-24 15:19 | Outpatient (CLI) | payer MEDICARE, SELFPAY ==
[2022-06-24 21:33] LABS: Free T4 Free Thyroxine Reflex 0.84 ng/dL (0.78-2.19)
[2022-06-24 22:36] LABS: Total Triiodothyronine (T3) 1.32 NG/ML (0.97-1.69)
== END 2022-06-24 15:20 | disposition home or self-care (01) ==
LOC: ANHLAB 15:21
PROVIDERS: Visit Provider Internal Medicine
DX: E03.9 Hypothyroidism, unspecified (principal)
CPT/HCPCS: 36415; 84439; 84443; 84480

== ENCOUNTER 2022-12-02 08:21 | Outpatient (CLI) | payer MEDICARE, SELFPAY ==
--- NOTE | ~2022-12-02 | NM_ITS ---
EXAMINATION: NM bone scan whole body DATE: 12/02/2022 12:35 INDICATION: Breast cancer with bone metastases TECHNIQUE: 25.1 mCi Tc-99m HDP was administered intravenously. Delayed whole-body scintigrams were o btained. COMPARISON: Bone scan dated 06/01/[address] studies dated 05/28/202011/01 FINDINGS: Again seen are numerous widespread foci of increased bone uptake with increase in the number and exte nt of lesions evident on bone scan. Correlation with CT imaging of the chest however demonstrates benito t the extent of bone involvement on the earlier bone scan appears to underestimate the extent of dise ase which at that time was predominantly lytic with the most intense foci of uptake occurring at the sites of pathologic fracture including at the sternum and several ribs. In the interval the predomina ntly lytic disease has transition to a more sclerotic appearance of a relatively similar extent and d istribution. The interval increase in uptake on bone scan can be readily accounted for by the increas ed sclerosis with many likely previously occult lesions now becoming demonstrating increased uptake d ue to the development of sclerosis. IMPRESSION: 1. Significant increase in apparent number and extent of widespread metastatic disease on bone scan, likely primarily an artifact of response to treatment with transition from previously primarily lytic bone disease to now primarily sclerotic appearance. Reviewed, dictated and finalized at location A. IMPRESSION: 1. Significant increase in apparent number and extent of widespread metastatic disease on bone scan, likely primarily an artifact of response to treatment wit h transition from previously primarily lytic bone disease to now primarily scle rotic appearance.
--- NOTE | ~2022-12-02 | CT_ITS ---
Clinical Indication: Left breast cancer CT Scan of the Chest with Contrast: Technique: Contiguous sections were acquired throughout the chest after intravenous administration of 75 cc of Omnipaque 350. Dose reduction technique was used on this scan by utilizing automated exposu re control and iterative reconstruction technique. The dose-length product (DLP) was 124.78 mGy-cm. COMPARISON: 05/28/2022 Findings: There is no evidence of any significant mediastinal, hilar or axillary lymphadenopathy. There are ath erosclerotic calcifications of the aorta. There is no evidence of aortic dissection or aneurysm. The re is a subareolar left breast mass which measures 2.8 x 1.9 cm, decreased in size from prior exam. There is no evidence of pleural or pericardial effusion. There is moderate to advanced emphysema. Right basilar scarring is present, similar to prior exam. No suspicious pulmonary nodule. Images through the upper abdomen reveal no abnormalities. Diffuse osseous metastatic disease is prese nt, with diffusely increased sclerosis as compared to prior exam. There are several scattered mild co mpression deformities in the thoracic spine, likely pathologic in nature, involving T11, T8, and T3. Probable healing fracture in the midsternal body. Bilateral rib fracture deformities are similar to p rior exam. Impression: 2.8 x 1.9 cm subareolar left breast mass, decreased in size from prior exam, consistent with partial response to therapy. Diffuse osseous metastatic disease, now predominantly sclerotic in appearance, which could reflect in terval partial response to therapy. There are scattered pathologic fractures, as detailed above. Moderate to advanced emphysema. Stable right basilar pulmonary scarring. Reviewed, dictated and finalized at location . Impression: 2.8 x 1.9 cm subareolar left breast mass, decreased in size from prior exam, co nsistent with partial response to therapy. Diffuse osseous metastatic disease, now predominantly sclerotic in appearance, which could reflect interval partial response to therapy. There are scattered p athologic fractures, as detailed above. Moderate to advanced emphysema. Stable right basilar pulmonary scarring.
== END 2022-12-02 08:22 | disposition home or self-care (01) ==
PROVIDERS: Visit Provider Internal Medicine Hematology & Oncology
DX: C50.912 Malignant neoplasm of unspecified site of left female breast (principal); Z17.0 Estrogen receptor positive status [ER+]; C79.51 Secondary malignant neoplasm of bone; J43.9 Emphysema, unspecified
CPT/HCPCS: 71260; 78306; 96372; A9503; J0897; Q9967

== ENCOUNTER 2023-04-20 15:33 | Outpatient (CLI) | payer MEDICARE, SELFPAY ==
[2023-04-20 15:52] LABS: Basophils Absolute Auto 0.1 K/mm3 (0.0-0.1); Basophils Percent Auto 1.8 % (0.2-1.2); Eosinophils Absolute Auto 0.1 K/mm3 (0-0.3); Eosinophils Percent Auto 2.5 % (0-4.4); Hematocrit 35.8 % (37.0-47.0); Hemoglobin 12.1 g/dL (12.0-15.0); Immature Granulocyte Absolute 0.01 K/mm3 (0.00-0.031); Immature Granulocyte Percent A 0.4 % (0-0.5); Lymphocytes Absolute Auto 0.97 K/mm3 (0.9-3.2); Mean Corpuscular HGB Conc 33.8 g/dl (32-36); Mean Corpuscular Hemoglobin 38.9 pg (26-34); Mean Corpuscular Volume 115.1 fl (80-100); Mean Platelet Volume 8.6 fl (7.4-10.4); Monocytes Absolute Auto 0.1 K/mm3 (0.1-0.6); Monocytes Percent Auto 3.5 % (2.6-8.5); Neutrophils Absolute Auto 1.7 K/mm3 (1.3-6.7); Neutrophils Percent Auto 57.8 % (45.5-73.1); Platelet Count Result 343 k/mm3 (150-375); Red Blood Count 3.11 M/mm3 (4.2-5.4); Red Cell Distribution Width 14.6 % (11.5-14.5); White Blood Count 2.9 K/mm3 (4.5-10.0)
[2023-04-20 15:59] LABS: Atypical Lymphocytes Present; Platelet Estimate Adequate (Adequate); Schistocytes None Seen (NORMAL)
[2023-04-20 16:46] LABS: Alanine Aminotransferase 12 U/L (6-35); Albumin Level 4.2 g/dL (3.5-5.1); Alkaline Phosphatase 64 U/L (38-126); Anion Gap 7 mmol/L (8-16); Aspartate Amino Transferase 27 U/L (14-36); Bilirubin,Total 0.6 mg/dL (0.2-1.3); Blood Urea Nitrogen 14 mg/dL (7-17); Calcium 9.6 mg/dL (8.4-10.2); Carbon Dioxide 31 mmol/L (22-30); Chloride 100 mmol/L (98-107); Estimated Glomerular Filt Rate 60; Glucose 116 mg/dL (65-110); Potassium 3.8 mmol/L (3.4-5.0); Sodium 138 mmol/L (137-145)
[2023-04-25 05:15] LABS: CA 15-3 59 U/mL (<32)
== END 2023-04-20 15:34 | disposition home or self-care (01) ==
LOC: ANHLAB 15:34
PROVIDERS: PCP Nurse Practitioner Family; Visit Provider Internal Medicine Hematology & Oncology
DX: E03.9 Hypothyroidism, unspecified (principal); C50.912 Malignant neoplasm of unspecified site of left female breast; Z17.0 Estrogen receptor positive status [ER+]
CPT/HCPCS: 36415; 80053; 84443; 85025; 86300

== ENCOUNTER 2023-05-12 09:25 | Outpatient (CLI) | payer MEDICARE, SELFPAY ==
--- NOTE | ~2023-05-12 | NM_ITS ---
EXAMINATION: NM bone scan whole body DATE: 05/12/2023 13:24 INDICATION: Breast cancer TECHNIQUE: 25.0 mCi Tc-99m HDP was administered intravenously. Delayed whole-body scintigrams were o btained. COMPARISON: Bone scan dated 12/02/[address] chest dated 05/12/2023 FINDINGS: Similar pattern of diffuse heterogeneous increased bone uptake in the axial and appendicular skeleton with corresponding widespread sclerosis of the bones on CT consistent with osseous metastatic diseas e. No definitively new or enlarging liver lesions identified. IMPRESSION: 1. No significant interval change in widespread osseous metastatic disease. Reviewed, dictated and finalized at location A.
--- NOTE | ~2023-05-12 | CT_ITS ---
EXAMINATION:CT diagnostic chest w con DATE: 05/12/2023 09:55 INDICATION: Malignant neoplasm of left breast. TECHNIQUE: Computed tomography (CT) of the chest was performed with 75 mL Omnipaque 350 intravenous c ontrast. Automated exposure control and iterative reconstruction technique were employed. The dose-le ngth product (DLP) was 163.04 mGy-cm. COMPARISON: Chest CT 12/02/2022 FINDINGS: There is moderate emphysema. There is mild atelectasis bilaterally. No pleural effusion. Th e heart size is normal. There are coronary artery calcifications. No pericardial effusion. There is a 2.6 x 1.3 cm mass of left breast that previously measured 2.8 x 1.9 cm. There is a 5.7 cm cyst in le ft kidney. There are widespread sclerotic lesions of bone. There are multiple old healed bilateral ri b fractures. There are chronic fractures of T2, T4, T7, and T10 vertebral bodies. There is an old hea led fracture of the sternum. IMPRESSION: 1. Left breast mass with slight increase in size, consistent with primary malignancy. 2. Widespread sclerotic lesions of bone without change, consistent with metastatic disease. 3. Moderate emphysema. Reviewed, dictated and finalized at location E. IMPRESSION: 1. Left breast mass with slight increase in size, consistent with primary malig roel. 2. Widespread sclerotic lesions of bone without change, consistent with metasta tic disease. 3. Moderate emphysema.
== END 2023-05-12 09:26 | disposition home or self-care (01) ==
PROVIDERS: PCP Nurse Practitioner Family; Visit Provider Internal Medicine Hematology & Oncology
DX: C50.912 Malignant neoplasm of unspecified site of left female breast (principal); Z17.0 Estrogen receptor positive status [ER+]; M89.9 Disorder of bone, unspecified; R92.8 Other abnormal and inconclusive findings on diagnostic imaging of breast; J43.9 Emphysema, unspecified
CPT/HCPCS: 71260; 78306; A9503; Q9967

== ENCOUNTER 2023-11-24 15:09 | Outpatient (CLI) | payer MEDICARE, SELFPAY ==
[2023-11-24 15:38] LABS: Basophils Absolute Auto 0.1 K/mm3 (0.0-0.1); Basophils Percent Auto 3.7 % (0.2-1.2); Eosinophils Percent Auto 1.4 % (0-4.4); Hematocrit 38.5 % (37.0-47.0); Hemoglobin 13.1 g/dL (12.0-15.0); Immature Granulocyte Absolute 0.01 K/mm3 (0.00-0.031); Immature Granulocyte Percent A 0.3 % (0-0.5); Lymphocytes Absolute Auto 0.96 K/mm3 (0.9-3.2); Lymphocytes Percent Auto 32.5 % (18.3-44.2); Mean Corpuscular Hemoglobin 39.8 pg (26-34); Mean Platelet Volume 9.1 fl (7.4-10.4); Monocytes Absolute Auto 0.2 K/mm3 (0.1-0.6); Monocytes Percent Auto 7.1 % (2.6-8.5); Neutrophils Absolute Auto 1.6 K/mm3 (1.3-6.7); Platelet Count Result 306 k/mm3 (150-375); Red Blood Count 3.29 M/mm3 (4.2-5.4); Red Cell Distribution Width 14.5 % (11.5-14.5)
[2023-11-24 16:00] LABS: Atypical Lymphocytes Present; Platelet Estimate Adequate (Adequate); Schistocytes None Seen
[2023-11-24 18:24] LABS: Alanine Aminotransferase 9 U/L (6-35); Albumin Level 4.4 g/dL (3.5-5.1); Alkaline Phosphatase 69 U/L (38-126); Anion Gap 8 mmol/L (4-12); Aspartate Amino Transferase 25 U/L (14-36); Bilirubin,Total 0.5 mg/dL (0.2-1.3); Blood Urea Nitrogen 18 mg/dL (7-17); Calcium 9.6 mg/dL (8.4-10.2); Carbon Dioxide 30 mmol/L (22-30); Chloride 103 mmol/L (98-107); Estimated Glomerular Filt Rate 60; Glucose 107 mg/dL (65-110); Sodium 141 mmol/L (137-145)
[2023-11-24 18:36] LABS: Free T4 Free Thyroxine 1.08 ng/mL (0.78-2.19)
[2023-11-26 03:49] LABS: CA 15-3 78 U/mL (<32)
== END 2023-11-24 15:10 | disposition home or self-care (01) ==
LOC: ANHLAB 15:11
PROVIDERS: PCP Nurse Practitioner Family; Visit Provider Internal Medicine Hematology & Oncology
DX: C50.919 Malignant neoplasm of unspecified site of unspecified female breast (principal); R73.01 Impaired fasting glucose; E03.9 Hypothyroidism, unspecified; I10 Essential (primary) hypertension
CPT/HCPCS: 36415; 80053; 84439; 84443; 85025; 86300

== ENCOUNTER 2024-01-25 14:51 | Outpatient (CLI) | payer MEDICARE, SELFPAY | END 2024-01-25 14:52 | disposition home or self-care (01) | LOC: ANHLAB 14:53 | PROVIDERS: PCP Nurse Practitioner Family; Visit Provider Nurse Practitioner Family | DX: E03.9 Hypothyroidism, unspecified (principal); I10 Essential (primary) hypertension | CPT/HCPCS: 36415; 84439; 84443 ==

== ENCOUNTER 2024-01-31 08:49 | Outpatient (CLI) | payer MEDICARE, SELFPAY ==
--- NOTE | ~2024-01-31 | CT_ITS ---
CT diagnostic chest w con Ordering provider: Marck Mott MD History: 83 years Female with . MAL TAMAR OF L BREAST . Comparison: May 12, 2023 Technique: CT chest with IV contrast. Radiation reduction technique utilized. The dose-length product was 128.927 mGy-cm. 75 mL Omnipaque 350 was given IV. Findings: VISUALIZED THORACIC INLET: Normal. Left breast mass in the area of the areola measuring 2.8 cm. MEDIASTINUM: Aorta/coronary arteries: Mild atheromatous disease. Heart/other: The heart is not enlarged. Lymph nodes: No mediastinal or hilar adenopathy. Precarinal lymph node which measures 1.3 cm. LUNGS: Emphysematous changes of the lungs. Dependent atelectatic changes. No definite lung metastases . No pulmonary nodules or masses. No infiltrates or effusions. No pneumothorax. VISUALIZED UPPER ABDOMEN: Left renal cyst measuring 5.1 cm. Otherwise, the visualized upper abdomen i s normal. MUSCULOSKELETAL: Soft tissues: The superficial soft tissues are normal. Bones: Widespread sclerotic lesions are seen in the lower cervical and thoracic spine with multiple r ibs suggestive of metastatic lesions. Loss of volume of multiple vertebrae in the midthoracic area un changed from previous examination. IMPRESSION: Widespread sclerotic lesions are seen in the lower cervical, thoracic spine, multiple ribs and in the sternum suggestive of metastatic lesions unchanged from previous examination. No definite lung metastases seen. Precarinal lymph node measuring 1.3 cm. Emphysematous changes of the lungs. Left renal cyst. Reviewed, dictated and finalized at location A. IMPRESSION: Widespread sclerotic lesions are seen in the lower cervical, thoracic spine, mu ltiple ribs and in the sternum suggestive of metastatic lesions unchanged from previous examination. No definite lung metastases seen. Precarinal lymph node measuring 1.3 cm. Emphysematous changes of the lungs. Left renal cyst.
--- NOTE | ~2024-01-31 | NM_ITS ---
EXAMINATION: NM bone scan whole body DATE: 01/31/2024 12:57 INDICATION: Breast cancer TECHNIQUE: 25.4 mCi Tc-99m HDP was administered intravenously. Delayed whole-body scintigrams were o btained. COMPARISON: CT dated 01/31/2024 FINDINGS: Again seen are multiple scattered foci of abnormal increased uptake in the skull, chest, abdomen, pel vis and proximal left femur which appear less numerous and many less intense than on the prior study. There is also less extensive than would be suggested by the widespread and in many bones nearly conf luent sclerotic disease evident on CT. This suggests likely interval response to treatment. Several o f the lesions including multiple ribs, vertebral bodies and sternum. Correlate with healing likely pa thologic fractures. No definitively new lesions identified. Likely degenerative joint centered uptake at the bilateral hands. IMPRESSION: 1. Similar pattern of numerous scattered foci of increased uptake which appears slightly less intense than on the prior study and significantly numerous/diffuse than would be suggested by the extensive sclerotic bone disease on CT suggesting response to treatment of metastatic disease. No definitively new lesions identified. 2. Several of the most intense foci of increased uptake in the spine, ribs and at the sternum appear to represent chronic healing likely pathologic fractures. Reviewed, dictated and finalized at location A. IMPRESSION: 1. Similar pattern of numerous scattered foci of increased uptake which appears slightly less intense than on the prior study and significantly numerous/diffu se than would be suggested by the extensive sclerotic bone disease on CT sugges ting response to treatment of metastatic disease. No definitively new lesions i dentified. 2. Several of the most intense foci of increased uptake in the spine, ribs and at the sternum appear to represent chronic healing likely pathologic fractures.
== END 2024-01-31 08:50 | disposition home or self-care (01) ==
LOC: ANHIMG 08:56
PROVIDERS: PCP Nurse Practitioner Family; Visit Provider Internal Medicine Hematology & Oncology
DX: R59.0 Localized enlarged lymph nodes (principal); N28.1 Cyst of kidney, acquired; R91.8 Other nonspecific abnormal finding of lung field; C50.912 Malignant neoplasm of unspecified site of left female breast; Z17.0 Estrogen receptor positive status [ER+]
CPT/HCPCS: 71260; 78306; A9503; Q9967

== ENCOUNTER 2024-07-13 14:20 | Outpatient (CLI) | payer MEDICARE, SELFPAY ==
[2024-07-13 16:36] LABS: Free T4 Free Thyroxine 1.06 ng/dL (0.78-2.19)
== END 2024-07-13 14:21 | disposition home or self-care (01) ==
LOC: ANHLAB 14:21
PROVIDERS: PCP Nurse Practitioner Family; Visit Provider Nurse Practitioner Family
DX: E03.9 Hypothyroidism, unspecified (principal)
CPT/HCPCS: 36415; 84439; 84443

== ENCOUNTER 2024-08-26 12:49 | Emergency (ER) | payer MEDICARE, SELFPAY ==
--- NOTE | 2024-08-26 12:53 | ED.GENADULT ---
HPI - General Adult General Chief complaint: Dental/Oral Stated complaint: Mouth/Gum Pain Time Seen by Provider: 08/26/24 12:59 Source: patient, RN notes reviewed and old records reviewed Mode of arrival: ambulatory Limitations: no limitations History of Present Illness HPI narrative: 84-year-old female presents to the [facility] with swelling to the anterior upper gum. Patient's daughter states that she was putting on her ?pop ins ? [facility] neck canal like a denture on , 2 days ago. States that they moved and she bit down causing discomfort and bleeding to the gum area. Now having some swelling, abrasion noted. Patient with very poor dentition. States they tried calling the primary, exchange, was told to go to the emergency room for evaluation. Onset (ago): day(s) (2) Treatments prior to arrival: none Related Data Home Medications ?Medication ?Instructions ?Recorded ?Confirmed ?Last Taken ?Type anastrozole 1 mg tablet 1 mg PO DAILY 06/24/22 07/03/24 Unknown History calcium 500 mg tablet 500 mg PO QID 07/22/22 07/03/24 Unknown History cholecalciferol (vitamin D3) 50 50 mcg PO BID 04/14/23 07/03/24 Unknown History mcg (2,000 unit) capsule palbociclib 125 mg tablet (Ibrance) 125 mg PO DAILY 04/14/23 07/03/24 Unknown History cetirizine 10 mg tablet (Zyrtec) 10 mg PO DAILY PRN allergy symptoms 07/03/24 07/13/24 Unknown History Allergies Allergy/AdvReac Type Severity Reaction Status Date / Time Sulfa (Sulfonamide Allergy Rash Verified 08/26/24 12:52 Antibiotics) Review of Systems Review of Systems: All systems reviewed & are unremarkable except as noted in HPI and below Constitutional: Constitutional: Reports no additional constitutional complaints ENT: Reports as per HPI Cardiovascular: Cardiovascular: Reports no additional cardiovascular complaints, Denies chest pain and Denies dyspnea Respiratory: Respiratory: Reports no additional respiratory complaints, Denies chest congestion, Denies cough and Denies dyspnea Musculoskeletal: Musculoskeletal: Reports no additional musculoskeletal complaints Integumentary/Breasts: Skin/Breast: Reports system reviewed and no additional complaints, except as docu PMFSH Past Medical History Medical History Hypothyroidism Metastatic breast cancer Tobacco abuse Hypertension Surgical History Surgical History No pertinent past surgical history Family History Family History Father Hypertension Other Unknown family medical history Social History Social History Social History: The patient lives home alone and is . She has 3 children. 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 Patient stated she is down to smoking 6 cigarettes a day. She denies any alcohol marijuana use. She does not have a durable power criminal defense attorney for healthcare. Code status full code Smoking packs per day: 1 Smoking cigarettes per day: 20.0 Years smoked: 68 Smoking pack-years: 68.00 Smoking status: Current every day smoker Tobacco type: cigarettes Alcohol intake: former Substance use: never Substance use type: does not use Lack of Transportation: No Lack of Food: Never True Current Housing: I Have Housing Concerned About Future Housing: No Difficulty Paying Gas/Electric Bills: No Difficulty Paying for Meds: No Currently Unemployed: No Education: High School Diploma/GED Difficulty w/ Childcare or Family Care: No Spiritual care concerns: No Agree to blood products: Yes Comments At the time of my signature, I reviewed and agree with the nursing past medical, surgical, social, and family history. There is no relevant family history pertinent to the patient complaint. Exam Const: General: cooperative, comfortable, no acute distress, well developed, alert, ill appearing chronically and well nourished Nutritional Appearance: well nourished Orientation/consciousness: patient oriented x3 Limitations: no limitations HENMT: Head: normal to inspection Ears: hearing grossly normal bilaterally, external ears normal, TM's normal bilaterally, EAC's normal and no periauricular adenopathy Face/Nose/Sinus: Normal external nose present Mouth: Yes lip normal Teeth and gingiva: gingiva abnormal edematous (behind front 4 teeth, small abrasion noted); without any purulent discharge and poor dentition Eyes: General: appearance normal, both eyes and all related structures Alignment and Position: alignment normal Neck: Neck: normal visual inspection, full ROM, no lymphadenopathy and no meningeal signs Chest: Chest palpation & inspection: normal inspection of the chest Resp: Effort & Inspection: normal respiratory effort and able to speak in complete sentences Auscultation: clear to auscultation bilaterally, no crackles, no rales, no rhonchi and no wheezes Cardio: Rate: regular rate Skin: General skin exam: normal color and no rashes or lesions noted Neuro: General: patient oriented x3, gait normal, moves all extremities and no meningeal signs Cognition (Neuro): normal cognition Speech: normal speech Gait exam (Neuro): Normal gait present Extrem: General: normal to inspection, full ROM, capillary refill normal and normal gait Psych: Appearance: grossly normal and well kempt Mental Status: mental status grossly normal Speech and movement: Normal speech and movement present and Clear speech present Affect: normal affect Attitude: cooperative Course Course Level of Care: Express Care Visit Vital Signs Vital signs: Vital Signs Temperature 98 F 08/26/24 13:00 Pulse Rate 110 H 08/26/24 13:00 Respiratory Rate 18 08/26/24 13:00 Blood Pressure 122/60 08/26/24 13:00 Pulse Oximetry 96 08/26/24 13:00 Oxygen Delivery Room Air 08/26/24 13:00 Temperature 98 F 08/26/24 13:00 Pulse Rate 110 H 08/26/24 13:00 Respiratory Rate 18 08/26/24 13:00 Blood Pressure 122/60 08/26/24 13:00 Pulse Oximetry 96 08/26/24 13:00 Oxygen Delivery Room Air 08/26/24 13:00 Reviewed Medical Decision Making MDM Narrative Medical decision making narrative: Patient sitting comfortably in exam room. Nontoxic, vitals stable. Patient in no acute distress Patient presents for swelling and abrasion after injury from a denture like appliance to her mouth. Patient was diagnosed with a a dental abscess in June. Patient is appropriate for outpatient treatment with antibiotics, mouthwash with close follow-up Discussed with patient and her daughter signs and symptoms proceed to the emergency room. Discharge instructions reviewed with patient, as well as provided in writing per nursing staff. The instructions also include specific and strict return/GO TO THE ER as well as f/u information. All questions have been answered, and the patient deny any further questions with discharge and discharge plan. Some parts of this dictation were generated by voice recognition software and may contain typographical and/or grammatical inaccuracies. Differential Diagnosis Differential Diagnosis: Dental abscess, irritation gingival, dental infection Medical Records Medical records reviewed: Yes I reviewed the external patient's medical records. Vital Signs Vital Signs: Vital Signs Temperature 98 F 08/26/24 13:00 Pulse Rate 110 H 08/26/24 13:00 Respiratory Rate 18 08/26/24 13:00 Blood Pressure 122/60 08/26/24 13:00 Pulse Oximetry 96 08/26/24 13:00 Oxygen Delivery Room Air 08/26/24 13:00 Temperature 98 F 08/26/24 13:00 Pulse Rate 110 H 08/26/24 13:00 Respiratory Rate 18 08/26/24 13:00 Blood Pressure 122/60 08/26/24 13:00 Pulse Oximetry 96 08/26/24 13:00 Oxygen Delivery Room Air 08/26/24 13:00 Reviewed Lab Data Lab results reviewed: Yes I reviewed the patient's lab results. Labs: Reviewed Critical Care Time Critical Care Time Critical Care Time: No Discharge Plan Discharge Clinical Impression: Disease of gingiva due to infection Patient Disposition: Home, Self-Care Condition: Stable Instructions: Antibiotic Form, Dental Abscess (ED) Additional Instructions: Finish the entire course of antibiotics & use the mouthwash. Every time he smoked be sure to rinse your mouth out with Listerine or antiseptic mouthwash After every time you eat be sure to use salt water rinses. Take Tylenol as needed for pain Follow-up with primary care provider Go to the ER for New or worsening symptoms. Patient Language: Tajik Prescriptions: New penicillin V potassium 500 mg tablet 500 mg PO QID 7 Days Qty: 28 0RF No Action anastrozole 1 mg Tablet 1 mg PO DAILY Patient Comments: . calcium 500 mg Tablet 500 mg PO QID cholecalciferol (vitamin D3) 50 mcg (2,000 unit) capsule 50 mcg PO BID Ibrance 125 mg tablet 125 mg PO DAILY Rx Instructions: administer on days 1 through 21 of a 28-day treatment cycle fluticasone propionate [Flonase Allergy Relief] 50 mcg/actuation spray,suspension 2 spray intranasal DAILY Qty: 16 1RF Rx Instructions: administer into each nostril Mucinex DM 30-600 mg tablet extended release 12 hr See Rx Instructions PO Q12H PRN (Reason: cough) Qty: 30 0RF Rx Instructions: 1-2 tablest orally every 12 hours PRN; cetirizine [Zyrtec] 10 mg tablet 10 mg PO DAILY PRN (Reason: allergy symptoms) levothyroxine [Synthroid] 50 mcg Tablet 50 mcg PO DAILY@0630 Qty: 30 1RF Follow-up/Referrals: Brittny Sen APRN [Primary Care Provider] - Time of Disposition: 13:10
[2024-08-26 13:00] VITALS: BP 122/60; PULSE 110; RESP 18; TEMP 36.6; O2SAT 96
== END 2024-08-26 13:15 | disposition home or self-care (01) ==
PROVIDERS: Emergency Provider Nurse Practitioner; PCP Nurse Practitioner Family
DX: K05.01 Acute gingivitis, non-plaque induced (principal); I10 Essential (primary) hypertension; E03.9 Hypothyroidism, unspecified; Z85.3 Personal history of malignant neoplasm of breast; F17.210 Nicotine dependence, cigarettes, uncomplicated
CPT/HCPCS: 99213; G0463

== ENCOUNTER 2025-05-02 08:39 | Outpatient (CLI) | payer MEDICARE, SELFPAY ==
--- NOTE | ~2025-05-02 | CT_ITS ---
Exam: CT chest, abdomen and pelvis with contrast Clinical History: [Malignant neoplasm of left breast. ] Comparison: [ Chest CT 01/31/2024 Technique: Multiple axial CT images of the chest, abdomen and pelvis were obtained with IV contrast. Sagittal and coronal reformatted images were obtained. FINDINGS: Lungs and pleura: [ Tracheobronchial tree is patent. No pneumothorax. No pleural effusion.] No pulmonary mass. Moderate centrilobular emphysema is similar to the prior study. There are few small reticular and bandlike opacities in the lower lungs likely atelectasis or scarring. Mediastinum and pulmonary roel: Stable 1.3 cm subcarinal lymph node. No other enlarged mediastinal or hilar lymph nodes identified. No enlarged supraclavicular, internal mammary or axillary lymph nodes. Axillary/intramammary and supraclavicular: [ No mass or adenopathy.] Heart and great vessels: [ Normal heart size.[ [ No pericardial effusion.] [ No aneurysm.] Moderate atherosclerotic disease in the thoracic aorta. There are a few coronary artery calcifications. Chest Wall: Probable postsurgical change in the left breast similar to the prior study. Liver: [ No mass.] [ No intrahepatic biliary duct dilatation.] There are two too small to characterize low-attenuation lesions in the liver. Gallbladder: [ No wall thickening or stones.] Common bile duct: [ Normal caliber.] [ No stones.] Spleen: [ Within normal limits.] Pancreas: [ No mass. No pancreatic fluid collection.] Adrenals: [ No masses.] Kidneys: [ No masses. No hydronephrosis.][ Stable left renal cyst.] Lymph nodes: [ No adenopathy in the abdomen or pelvis.] Stomach, small bowel and colon: [ No bowel wall thickening or obstruction.] Moderate amount of stool. Peritoneum cavity: [ No mesenteric fat stranding or fluid.] Bladder: [ Unremarkable.] Osseous structures: Numerous sclerotic metastatic lesions throughout the axial and appendicular skeleton. Osseous structures in the thoracic spine are similar to the study from 01/31/2024. Abdominal aorta: [ No aneurysm.] Additional findings: [ None of significance.] IMPRESSION: 1. Extensive osseous metastatic disease throughout the axial and appendicular skeleton. Consider a total body bone scan for further assessment. 2. There are two too small to characterize low-attenuation lesions in the liver. A follow-up CT of the liver in 3 months is recommended. 3. No CT evidence for metastatic disease in the lungs. 4. Stable mildly enlarged subcarinal lymph node. No new adenopathy in the chest, abdomen or pelvis. 5. Stable emphysema. 6. Stable left renal cyst. Reviewed, dictated and finalized at location Q. IMPRESSION: 1. Extensive osseous metastatic disease throughout the axial and appendicular s keleton. Consider a total body bone scan for further assessment. 2. There are two too small to characterize low-attenuation lesions in the liver . A follow-up CT of the liver in 3 months is recommended. 3. No CT evidence for metastatic disease in the lungs. 4. Stable mildly enlarged subcarinal lymph node. No new adenopathy in the chest , abdomen or pelvis. 5. Stable emphysema. 6. Stable left renal cyst.
--- NOTE | ~2025-05-02 | NM_ITS ---
EXAMINATION: NM bone scan whole body DATE: 05/02/2025 12:10 INDICATION: Left breast cancer TECHNIQUE: mCi Tc-99m HDP was administered intravenously. Delayed whole-body scintigrams were obtained. COMPARISON: Bone scan and CT dated 01/31/[address] dated 05/02/2025 FINDINGS: No appreciable interval change in numerous scattered foci of increased bone uptake in the skull, spine, sternum, multiple ribs, left scapula, pelvis and proximal femurs consistent with stable metastatic disease. No definitively new lesions identified. IMPRESSION: 1. No appreciable change in numerous scattered foci of increased uptake in the axial and appendicular skeleton consistent with stable extensive osseous metastatic disease. Reviewed, dictated and finalized at location A. IMPRESSION: 1. No appreciable change in numerous scattered foci of increased uptake in the axial and appendicular skeleton consistent with stable extensive osseous metast atic disease.
[2025-05-02 09:13] LABS: Estimated Glomerular Filt Rate 59
== END 2025-05-02 08:40 | disposition home or self-care (01) ==
PROVIDERS: PCP Nurse Practitioner Family; Visit Provider Internal Medicine Hematology & Oncology
DX: C50.912 Malignant neoplasm of unspecified site of left female breast (principal); Z17.0 Estrogen receptor positive status [ER+]; J43.9 Emphysema, unspecified; N28.1 Cyst of kidney, acquired; C79.51 Secondary malignant neoplasm of bone
CPT/HCPCS: 71260; 74177; 78306; A9503; Q9967

== ENCOUNTER 2025-07-11 13:11 | Outpatient (CLI) | payer MEDICARE, SELFPAY ==
--- OUTSIDE RECORDS SUMMARY | 2025-07-11 13:14 | XMS_ITS | Encounter Summary ---
Author Organization [facility] Address [address] [place] [address] Care Team Providers Care Human Development Professor Name Role Phone Merritt Herirng MD Primary Care Provider [phone] Encounter Details Date Type Department Care Team (Late Contact Info) Description 08/31/2007 Outpatient Historical [facility] Internal Medicine [address] [phone] Albert Ulrich MD [address] [place] [phone] Social History Tobacco Use Types Packs/Day Years Used Date Smoking Tobacco: Never Assessed Comments Unknown Sex and Gender Information Value Date Recorded Sex Assigned at Not on file Legal Sex Female 3:44 AM AUTOMATIC THREAD WINDER Gender Identity Not on file Sexual Orientation Not on file documented as of this encounter Plan of Treatment Upcoming Encounters Date Type Department Care Team (Late st Contact Info) Description 07/18/2025 3:30 PM AUTOMATIC THREAD WINDER Office Visit [facility] Oncology and Hematology - [place] [address] [facility] [address] [place] [address] Marck Mott MD [address] [facility] [address] [place] [address] documented as of this encounter Visit Diagnoses Not on filedocumented in this encounter Care Teams Human Development Professor Relationship Specialty Start Date End Date Merritt Herring MD [address] [place] [phone] PCP - General Family Practice 05/19/23 documented as of this encounter
--- OUTSIDE RECORDS SUMMARY | 2025-07-11 13:14 | XMS_ITS | Encounter Summary ---
Author Organization [facility] Address [address] [place] [address] Care Team Providers Care Document Specialist Name Role Phone Merritt Herring MD Primary Care Provider [phone] Encounter Details Date Type Department Care Team (Late Contact Info) Description 04/04/2003 Outpatient Historical [facility] Internal Medicine [address] [phone] Albert Ulrich MD [address] [place] [phone] Social History Tobacco Use Types Packs/Day Years Used Date Smoking Tobacco: Never Assessed Comments Unknown Sex and Gender Information Value Date Recorded Sex Assigned at Not on file Legal Sex Female 3:44 AM DIRECTOR CLINICAL RESEARCH Gender Identity Not on file Sexual Orientation Not on file documented as of this encounter Plan of Treatment Upcoming Encounters Date Type Department Care Team (Late st Contact Info) Description 07/18/2025 3:30 PM DIRECTOR CLINICAL RESEARCH Office Visit [facility] Oncology and Hematology - [place] [address] [facility] [address] [place] [address] Marck Mott MD [address] [facility] [address] [place] [address] documented as of this encounter Visit Diagnoses Not on filedocumented in this encounter Care Teams Document Specialist Relationship Specialty Start Date End Date Merritt Herring MD [address] [place] [phone] PCP - General Family Practice 05/19/23 documented as of this encounter
--- OUTSIDE RECORDS SUMMARY | 2025-07-11 13:14 | XMS_ITS | Encounter Summary ---
Author Organization [facility] Address [address] [place] [address] Care Team Providers Care Environmental Remediation Specialist Name Role Phone Merritt Herring MD Primary Care Provider [phone] Encounter Details Date Type Department Care Team (Late Contact Info) Description 06/28/2002 Outpatient Historical [facility] Internal Medicine [address] [phone] Albert Ulrich MD [address] [place] [phone] Social History Tobacco Use Types Packs/Day Years Used Date Smoking Tobacco: Never Assessed Comments Unknown Sex and Gender Information Value Date Recorded Sex Assigned at Not on file Legal Sex Female 3:44 AM TRANSCRIPTER Gender Identity Not on file Sexual Orientation Not on file documented as of this encounter Plan of Treatment Upcoming Encounters Date Type Department Care Team (Late st Contact Info) Description 07/18/2025 3:30 PM TRANSCRIPTER Office Visit [facility] Oncology and Hematology - [place] [address] [facility] [address] [place] [address] Marck Mott MD [address] [facility] [address] [place] [address] documented as of this encounter Visit Diagnoses Not on filedocumented in this encounter Care Teams Environmental Remediation Specialist Relationship Specialty Start Date End Date Merritt Herring MD [address] [place] [phone] PCP - General Family Practice 05/19/23 documented as of this encounter
--- OUTSIDE RECORDS SUMMARY | 2025-07-11 13:14 | XMS_ITS | Encounter Summary ---
Author Organization [facility] Address [address] [place] [address] Care Team Providers Care Roll Scale Worker Name Role Phone Merritt Herring MD Primary Care Provider [phone] Encounter Details Date Type Department Care Team (Late Contact Info) Description 05/04/2007 Outpatient Historical [facility] Internal Medicine [address] [phone] Albert Ulrich MD [address] [place] [phone] Social History Tobacco Use Types Packs/Day Years Used Date Smoking Tobacco: Never Assessed Comments Unknown Sex and Gender Information Value Date Recorded Sex Assigned at Not on file Legal Sex Female 3:44 AM LEARNING AND DEVELOPMENT CONSULTANT Gender Identity Not on file Sexual Orientation Not on file documented as of this encounter Plan of Treatment Upcoming Encounters Date Type Department Care Team (Late st Contact Info) Description 07/18/2025 3:30 PM LEARNING AND DEVELOPMENT CONSULTANT Office Visit [facility] Oncology and Hematology - [place] [address] [facility] [address] [place] [address] Marck Mott MD [address] [facility] 100 [place] [address] documented as of this encounter Visit Diagnoses Not on filedocumented in this encounter Care Teams Roll Scale Worker Relationship Specialty Start Date End Date Merritt Herring MD [address] [place] [phone] PCP - General Family Practice 05/19/23 documented as of this encounter
--- OUTSIDE RECORDS SUMMARY | 2025-07-11 13:14 | XMS_ITS | Encounter Summary ---
Author Organization [facility] Address [address] [place] [address] Care Team Providers Care Drill Instructor Name Role Phone Merritt Herring MD Primary Care Provider [phone] [phone] Encounter Details Date Type Department Care Team (Late Contact Info) Description 04/19/2002 Outpatient Historical [facility] Internal Medicine [address] [phone] Albert Ulrich MD [address] [place] [phone] Social History Tobacco Use Types Packs/Day Years Used Date Smoking Tobacco: Never Assessed Comments Unknown Sex and Gender Information Value Date Recorded Sex Assigned at Not on file Legal Sex Female 3:44 AM TURNER MACHINE Gender Identity Not on file Sexual Orientation Not on file documented as of this encounter Plan of Treatment Upcoming Encounters Date Type Department Care Team (Late st Contact Info) Description 07/18/2025 3:30 PM TURNER MACHINE Office Visit [facility] Oncology and Hematology - [place] 2227 [facility] 200 [place] [address] Marck Mott MD 2227 [facility] [place] 100 [place] [address] documented as of this encounter Visit Diagnoses Not on filedocumented in this encounter Care Teams Drill Instructor Relationship Specialty Start Date End Date Merritt Herring MD [address] [place] [address] PCP - General Family Practice 05/19/23 documented as of this encounter
--- OUTSIDE RECORDS SUMMARY | 2025-07-11 13:14 | XMS_ITS | Encounter Summary ---
Author Organization [facility] Address [address] [place] [address] Care Team Providers Care Respiratory Director Name Role Phone Merritt Herring MD Primary Care Provider [phone] [phone] Encounter Details Date Type Department Care Team (Late Contact Info) Description 09/10/[address] [facility] Internal Medicine [address] [phone] Albert Ulrich MD [address] [place] [phone] Social History Tobacco Use Types Packs/Day Years Used Date Smoking Tobacco: Never Assessed Comments Unknown Sex and Gender Information Value Date Recorded Sex Assigned at Not on file Legal Sex Female 3:44 AM FRONT OFFICE DIRECTOR Gender Identity Not on file Sexual Orientation Not on file documented as of this encounter Plan of Treatment Upcoming Encounters Date Type Department Care Team (Late st Contact Info) Description 07/18/2025 3:30 PM FRONT OFFICE DIRECTOR Office Visit [facility] Oncology and Hematology - [place] 2227 [facility] 200 [place] [address] Marck Mott MD 2227 [facility] [place] 100 [place] [address] documented as of this encounter Visit Diagnoses Not on filedocumented in this encounter Care Teams Respiratory Director Relationship Specialty Start Date End Date Merritt Herring MD [address] [place] [address] PCP - General Family Practice 05/19/23 documented as of this encounter
--- OUTSIDE RECORDS SUMMARY | 2025-07-11 13:14 | XMS_ITS | Encounter Summary ---
Author Organization [facility] Address [address] [place] [address] Care Team Providers Care Coding Auditor Name Role Phone Merritt Herring MD Primary Care Provider [phone] [phone] Encounter Details Date Type Department Care Team (Late Contact Info) Description 01/30/2004 Outpatient Historical [facility] Internal Medicine [address] [phone] Albert Ulrich MD [address] [place] [phone] Social History Tobacco Use Types Packs/Day Years Used Date Smoking Tobacco: Never Assessed Comments Unknown Sex and Gender Information Value Date Recorded Sex Assigned at Not on file Legal Sex Female 3:44 AM US MARKETING DIRECTOR Gender Identity Not on file Sexual Orientation Not on file documented as of this encounter Plan of Treatment Upcoming Encounters Date Type Department Care Team (Late st Contact Info) Description 07/18/2025 3:30 PM US MARKETING DIRECTOR Office Visit [facility] Oncology and Hematology - [place] 2227 [facility] [place] [address] [place] [address] Marck Mott MD 2227 [facility] 100 [place] [address] documented as of this encounter Visit Diagnoses Not on filedocumented in this encounter Care Teams Coding Auditor Relationship Specialty Start Date End Date Merritt Herring MD [address] [place] [address] PCP - General Family Practice 05/19/23 documented as of this encounter
--- OUTSIDE RECORDS SUMMARY | 2025-07-11 13:14 | XMS_ITS | Encounter Summary ---
Author Organization [facility] Address [address] [place] [address] Care Team Providers Care Doctor Of Veterinary Medicine Name Role Phone Merritt Herring MD Primary Care Provider [phone] [phone] Encounter Details Date Type Department Care Team (Late Contact Info) Description 01/03/[address] [facility] Internal Medicine [address] [phone] Albert Ulrich MD [address] [place] [phone] Social History Tobacco Use Types Packs/Day Years Used Date Smoking Tobacco: Never Assessed Comments Unknown Sex and Gender Information Value Date Recorded Sex Assigned at Not on file Legal Sex Female 3:44 AM SORT MANAGER Gender Identity Not on file Sexual Orientation Not on file documented as of this encounter Plan of Treatment Upcoming Encounters Date Type Department Care Team (Late st Contact Info) Description 07/18/2025 3:30 PM SORT MANAGER Office Visit [facility] Oncology and Hematology - [place] 2227 [facility] 200 [place] [address] Marck Mott MD 2227 [facility] 100 [place] [address] documented as of this encounter Visit Diagnoses Not on filedocumented in this encounter Care Teams Doctor Of Veterinary Medicine Relationship Specialty Start Date End Date Merritt Herring MD [address] [place] [address] PCP - General Family Practice 05/19/23 documented as of this encounter
--- OUTSIDE RECORDS SUMMARY | 2025-07-11 13:14 | XMS_ITS | Encounter Summary ---
Author Organization [facility] Address [address] [place] [address] Care Team Providers Care Antisqueak Applier Name Role Phone Merritt Herring MD Primary Care Provider [phone] [phone] Encounter Details Date Type Department Care Team (Late Contact Info) Description 10/07/2005 Outpatient Historical [facility] Internal Medicine [address] [phone] Albert Ulrich MD [address] [place] [phone] Social History Tobacco Use Types Packs/Day Years Used Date Smoking Tobacco: Never Assessed Comments Unknown Sex and Gender Information Value Date Recorded Sex Assigned at Not on file Legal Sex Female 3:44 AM BOOSTER STATION OPERATOR Gender Identity Not on file Sexual Orientation Not on file documented as of this encounter Plan of Treatment Upcoming Encounters Date Type Department Care Team (Late st Contact Info) Description 07/18/2025 3:30 PM BOOSTER STATION OPERATOR Office Visit [facility] Oncology and Hematology - [place] 2227 [facility] 200 [place] [address] Marck Mott MD 2227 [facility] 100 [place] [address] documented as of this encounter Visit Diagnoses Not on filedocumented in this encounter Care Teams Antisqueak Applier Relationship Specialty Start Date End Date Merritt Herring MD [address] [place] [phone] PCP - General Family Practice 05/19/23 documented as of this encounter
--- OUTSIDE RECORDS SUMMARY | 2025-07-11 13:14 | XMS_ITS | Encounter Summary ---
Author Organization [facility] Address [address] [place] [address] Care Team Providers Care Liquid Flavor Compounder Name Role Phone Merritt Herring MD Primary Care Provider [phone] [phone] Encounter Details Date Type Department Care Team (Late Contact Info) Description 06/27/2003 Outpatient Historical [facility] Internal Medicine [address] [phone] Albert Ulrich MD [address] [place] [phone] Social History Tobacco Use Types Packs/Day Years Used Date Smoking Tobacco: Never Assessed Comments Unknown Sex and Gender Information Value Date Recorded Sex Assigned at Not on file Legal Sex Female 3:44 AM CELLULAR BIOLOGIST Gender Identity Not on file Sexual Orientation Not on file documented as of this encounter Plan of Treatment Upcoming Encounters Date Type Department Care Team (Late st Contact Info) Description 07/18/2025 3:30 PM CELLULAR BIOLOGIST Office Visit [facility] Oncology and Hematology - [place] 2227 [facility] 200 [place] [address] Marck Mott MD 2227 [facility] 100 [place] [address] documented as of this encounter Visit Diagnoses Not on filedocumented in this encounter Care Teams Liquid Flavor Compounder Relationship Specialty Start Date End Date Merritt Herring MD [address] [place] [address] PCP - General Family Practice 05/19/23 documented as of this encounter
--- OUTSIDE RECORDS SUMMARY | 2025-07-11 13:14 | XMS_ITS | Encounter Summary ---
Author Organization [facility] Address [address] [place] [address] Care Team Providers Care Retail Area Manager Name Role Phone Merritt Herring MD Primary Care Provider [phone] [phone] Encounter Details Date Type Department Care Team (Late Contact Info) Description 06/09/2006 Outpatient Historical [facility] Internal Medicine [address] [phone] Albert Ulrich MD [address] [place] [phone] Social History Tobacco Use Types Packs/Day Years Used Date Smoking Tobacco: Never Assessed Comments Unknown Sex and Gender Information Value Date Recorded Sex Assigned at Not on file Legal Sex Female 3:44 AM THERAPY SITE COORDINATOR Gender Identity Not on file Sexual Orientation Not on file documented as of this encounter Plan of Treatment Upcoming Encounters Date Type Department Care Team (Late st Contact Info) Description 07/18/2025 3:30 PM THERAPY SITE COORDINATOR Office Visit [facility] Oncology and Hematology - [place] 2227 [facility] 200 [place] [address] Marck Mott MD 2227 [facility] 100 [place] [address] documented as of this encounter Visit Diagnoses Not on filedocumented in this encounter Care Teams Retail Area Manager Relationship Specialty Start Date End Date Merritt Herring MD [address] [place] [address] PCP - General Family Practice 05/19/23 documented as of this encounter
--- OUTSIDE RECORDS SUMMARY | 2025-07-11 13:14 | XMS_ITS | Encounter Summary ---
Author Organization [facility] Address [address] [place] [address] Care Team Providers Care Sulfate Drier Machine Operator Name Role Phone Merritt Herring MD Primary Care Provider [phone] [phone] Encounter Details Date Type Department Care Team (Late Contact Info) Description 01/05/2007 Outpatient Historical [facility] Internal Medicine [address] [phone] Albert Ulrich MD [address] [place] [phone] Social History Tobacco Use Types Packs/Day Years Used Date Smoking Tobacco: Never Assessed Comments Unknown Sex and Gender Information Value Date Recorded Sex Assigned at Not on file Legal Sex Female 3:44 AM LAND PLANNER Gender Identity Not on file Sexual Orientation Not on file documented as of this encounter Plan of Treatment Upcoming Encounters Date Type Department Care Team (Late st Contact Info) Description 07/18/2025 3:30 PM LAND PLANNER Office Visit [facility] Oncology and Hematology - [place] 2227 [facility] 200 [place] [address] Marck Mott MD 2227 [facility] 100 [place] [address] documented as of this encounter Visit Diagnoses Not on filedocumented in this encounter Care Teams Sulfate Drier Machine Operator Relationship Specialty Start Date End Date Merritt Herring MD [address] [place] [address] PCP - General Family Practice 05/19/23 documented as of this encounter
--- OUTSIDE RECORDS SUMMARY | 2025-07-11 13:14 | XMS_ITS | Encounter Summary ---
Author Organization [facility] Address [address] [place] [address] Care Team Providers Care Parcel Wrapper Name Role Phone Merritt Herring MD Primary Care Provider [phone] [phone] Encounter Details Date Type Department Care Team (Late Contact Info) Description 02/03/2006 Outpatient Historical [facility] Internal Medicine [address] [phone] Albert Ulrich MD [address] [place] [phone] Social History Tobacco Use Types Packs/Day Years Used Date Smoking Tobacco: Never Assessed Comments Unknown Sex and Gender Information Value Date Recorded Sex Assigned at Not on file Legal Sex Female 3:44 AM PHOTOGRAPHIC PLATEMAKER Gender Identity Not on file Sexual Orientation Not on file documented as of this encounter Plan of Treatment Upcoming Encounters Date Type Department Care Team (Late st Contact Info) Description 07/18/2025 3:30 PM PHOTOGRAPHIC PLATEMAKER Office Visit [facility] Oncology and Hematology - [place] 2227 [facility] 200 [place] [address] Marck Mott MD 2[address] [facility] 100 [place] [address] documented as of this encounter Visit Diagnoses Not on filedocumented in this encounter Care Teams Parcel Wrapper Relationship Specialty Start Date End Date Merritt Herring MD [address] [place] [address] PCP - General Family Practice 05/19/23 documented as of this encounter
--- OUTSIDE RECORDS SUMMARY | 2025-07-11 13:14 | XMS_ITS | Encounter Summary ---
Author Organization [facility] Address [address] [place] [address] Care Team Providers Care Sleeve Wheel Maker Name Role Phone Merritt Herring MD Primary Care Provider [phone] [phone] Encounter Details Date Type Department Care Team (Late Contact Info) Description 08/31/2007 Outpatient Historical [facility] Internal Medicine [address] [phone] Albert Ulrich MD [address] [place] [phone] Social History Tobacco Use Types Packs/Day Years Used Date Smoking Tobacco: Never Assessed Comments Unknown Sex and Gender Information Value Date Recorded Sex Assigned at Not on file Legal Sex Female 3:44 AM FRUIT HARVESTER Gender Identity Not on file Sexual Orientation Not on file documented as of this encounter Plan of Treatment Upcoming Encounters Date Type Department Care Team (Late st Contact Info) Description 07/18/2025 3:30 PM FRUIT HARVESTER Office Visit [facility] Oncology and Hematology - [place] 2227 [facility] 200 [place] [address] Marck Mott MD 2227 [facility] 100 [place] [address] documented as of this encounter Visit Diagnoses Not on filedocumented in this encounter Care Teams Sleeve Wheel Maker Relationship Specialty Start Date End Date Merritt Herring MD [address] [place] [address] PCP - General Family Practice 05/19/23 documented as of this encounter
--- OUTSIDE RECORDS SUMMARY | 2025-07-11 13:14 | XMS_ITS | Encounter Summary ---
Author Organization [facility] Address [address] [place] [address] Care Team Providers Care Resident Program Specialist Name Role Phone Merritt Herring MD Primary Care Provider [phone] [phone] Encounter Details Date Type Department Care Team (Late Contact Info) Description 06/10/2005 Outpatient Historical [facility] Internal Medicine [address] [phone] Albert Ulrich MD [address] [place] [phone] Social History Tobacco Use Types Packs/Day Years Used Date Smoking Tobacco: Never Assessed Comments Unknown Sex and Gender Information Value Date Recorded Sex Assigned at Not on file Legal Sex Female 3:44 AM GIS ANALYST Gender Identity Not on file Sexual Orientation Not on file documented as of this encounter Plan of Treatment Upcoming Encounters Date Type Department Care Team (Late st Contact Info) Description 07/18/2025 3:30 PM GIS ANALYST Office Visit [facility] Oncology and Hematology - [place] 2227 [facility] 200 [place] [address] Marck Mott MD 2227 [facility] [address] [place] [address] documented as of this encounter Visit Diagnoses Not on filedocumented in this encounter Care Teams Resident Program Specialist Relationship Specialty Start Date End Date Merritt Herring MD [address] [place] [address] PCP - General Family Practice 05/19/23 documented as of this encounter
--- OUTSIDE RECORDS SUMMARY | 2025-07-11 13:14 | XMS_ITS | Encounter Summary ---
Author Organization [facility] Address [address] [place] [address] Care Team Providers Care Bdc Manager Name Role Phone Merritt Herring MD Primary Care Provider [phone] [phone] Encounter Details Date Type Department Care Team (Late Contact Info) Description 09/08/2006 Outpatient Historical [facility] Internal Medicine [address] [phone] Albert Ulrich MD [address] [place] [phone] Social History Tobacco Use Types Packs/Day Years Used Date Smoking Tobacco: Never Assessed Comments Unknown Sex and Gender Information Value Date Recorded Sex Assigned at Not on file Legal Sex Female 3:44 AM NUT PICKER Gender Identity Not on file Sexual Orientation Not on file documented as of this encounter Plan of Treatment Upcoming Encounters Date Type Department Care Team (Late st Contact Info) Description 07/18/2025 3:30 PM NUT PICKER Office Visit [facility] Oncology and Hematology - [place] 2227 [facility] 200 [place] [address] Marck Mott MD 2227 [facility] 100 [place] [address] documented as of this encounter Visit Diagnoses Not on filedocumented in this encounter Care Teams Bdc Manager Relationship Specialty Start Date End Date Merritt Herring MD [address] [place] [phone] PCP - General Family Practice 05/19/23 documented as of this encounter
--- OUTSIDE RECORDS SUMMARY | 2025-07-11 13:14 | XMS_ITS | Clinical Summary ---
Author Organization [facility] [address] Address [address] [facility] [place] [address] Care Team Providers Care Time Study Statistician Name Role Phone Merritt Herring MD Primary Care Provider [phone] Allergies Active Allergy Reactions Criticality Noted Date Comments Enalapril Diarrhea Low 05/01/2009 Sulfa (Sulfonamide Antibiotics) Rash Low 04/12 Medications potassium chloride (KLOR-CON) 10 mEq Extended Release tablet Take 1 Tablet (10 mEq) by mouth 2 times daily. 60 Tablet 1 06/30/2022 Active cholecalciferol, Vitamin D3, 125 mcg (5,000 unit) Capsule Take 5,000 Units by mouth daily. Active loratadine (CLARITIN) 10 mg tablet Take 10 mg by mouth daily. Active palbociclib (Ibrance) 125 mg capsule Take 1 Capsule (125 mg) by mouth daily for 21 days. 21 Capsule 6 01/07/2024 Active anastrozole (ARIMIDEX) 1 mg tabletIndication s:Malignant neoplasm of left breast in female, estrogen receptor positive, unspecified site of breast (CMS/HCC) Take 1 tablet by mouth once daily 90 Tablet 3 10/09/2024 Active levothyroxine 50 mcg tabletIndication s:Hypothyroidism , unspecified type Take 1 tablet by mouth once daily 30 Tablet 01/17/2025 Active Active Problems Patient Care Coordination No te Formatting of this note migh t be different from the original. 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 05/01/2009 Primary osteoarthritis involving multiple joints 05/01/2009 Encounters Date Type Department Care Team Description 07/03/2025 Telephone [facility] Oncology and Hematology [facility] [address] [place] [address] Marck Mott MD Pfizer assistance questions 06/19/2025 External Device Data STL ABSTRACTION Provider, Abstract 05/09/2025 3:45 PM CDT Office Visit [facility] Oncology and Hematology [facility] [address] [place] [address] Marck Mott MD Malignant neoplasm of left breast in female, estrogen receptor positive, unspecified site of breast (CMS/HCC) (Primary Dx) 05/03/2025 Orders Only [facility] Oncology and Hematology [facility] [address] [place] [address] Marck Mott MD 05/02/2025 Orders Only [facility] Oncology and Hematology [facility] [address] [place] [address] Marck Mott MD from Last 3 Months Immunizations Immunization Administration Dates Next Due ([facility])(12 YR UP) COVID-19 VACCINE - EMERGENCY USE AUTHORIZATION, MRNA, [id number](PF) 30 MCG/0.3 ML IM SUSP 10/24/2020,09/28/2020 (PNEUMOVAX 23)(50 YRS UP) PN EUMOCOCCAL POLYSACCHARIDE (PPV23) 0.5 ML, IM 08/30/2013 (PREVNAR 13)(6 WKS UP) PNEUM OCOCCAL CONJUGATE (PCV13) 0.5 ML, IM 08/21/2015 (TDVAX)(7 YRS UP) TETANUS AN D DIPHTHERIA TOXOIDS, ADSORBED (2 LF OF TETANUS TOXOID AND 2 LF OF DIPHTHERIA TOXOID), 0.5ML (PF), IM 07/12/1996 Pneumococcal conjugate, unspecified formulation 06/11/2003 Zoster Vaccine Live SQ 10/10/2010 Family History * Patient is adopted Medical History Relation Name Comments No Known Problems Daughter 1 Cancer - Other Daughter 2 Hypertension Father No Known Problems Mother Relation Name Status Comments Daughter 1 Alive Daughter 2 Alive Father Mother Son Social History Tobacco Use Types Packs/Day Years Used Date Smoking Tobacco: Every Day Cigarettes Smokeless Tobacco: Never Tobacco Cessation:Ready to Q uit: No; Counseling Given: Yes Alcohol Use Standard Drinks/Week Comments Yes 0.8 (1 standard drink = 0.6 oz p ure alcohol) Financial Resource Strain Answer Date R ecorded How hard is it for you to pa y for the very basics like food, housing, medical care, and heating? Not hard at all 01/28/2022 Food Insecurity Answer Date Recorded In the past 12 months, have you worried that your food would run out before you had money to buy more? Never true 01/28/2022 In the past 12 months, did y ou run out of food and didn't have money to buy more? Never true 01/28/2022 Transportation Needs Answer Date Record ed In the past 12 months, has l ack of transportation kept you from medical appointments or from getting medications? No 01/28/2022 Lack of Transportation (Non-Medical) Not on file 01/28/2022 Comments No Sex and Gender Information Value Date Recorded Sex Assigned at Not on file Legal Sex Female 3:44 AM GUITAR PLAYER Gender Identity Not on file Sexual Orientation Not on file Last Filed Vital Signs Vital Sign Reading Time Taken Comments Blood Pressure 109/87 05/09/2025 3:33 PM CDT Pulse 94 05/09/2025 3:33 PM CDT Temperature 36 C (96.8 F) 05/09/2025 3:33 PM CDT Respiratory Rate 15 11/29/2024 3:18 PM CDT Oxygen Saturation 95% 05/09/2025 3:33 PM CDT Inhaled Oxygen Concentration - - Weight 60.5 kg (133 lb 6.4 oz) 05/09/2025 3:33 P M CDT Height 172.7 cm (5' 8) 02/28/2025 3:43 PM CDT Body Mass Index 20.28 02/28/2025 3:43 PM CDT Plan of Treatment Upcoming Encounters Date Type Department Care Team (Late st Contact Info) Description 07/18/2025 3:30 PM GUITAR PLAYER Office Visit [facility] Oncology and Hematology - [address] [facility] [address] [place] [address] Marck Mott MD [address] [facility] [address] [place] [address] Health Maintenance Due Date Last Done Comments DTAP/TDAP/TD VACCINES (1 - Tdap) 07/13/1996 07/12/18 97 ZOSTER VACCINE (1 of 2) 12/05/2010 10/10/2010 RSV VACCINE (60+ or ) (1 - 1-dose 75+ series) 2013 OSTEOPOROSIS SCREENING 08/12/2016 08/12/2011 (Declin ed) COVID-19 Vaccine (3 - Pfizer risk series) 11/21/2020 10/24/2020, 09/28/2020 [place] Preventative Visit/Annual Wellness Visit 07/12/2024 05/27/2022, 01/28/2022, 12/18/2020, Additional history exists INFLUENZA VACCINE (#1) 2025 PNEUMOCOCCAL VACCINE 50+ YEARS Completed 0 08/21/2015, 08/30/2013, 06/11/2003 Procedures Procedure Name Priority Date/Time Associated Diagnosis Comments COMPREHENSIVE METABOLIC PANEL Routine 05/02/2025 4:16 PM CDT CBC WITH AUTODIFFERENTIAL Routine 2024 12:55 PM CDT CHG CA 15 3 Routine 05/02/2025 11:[address] CHEST ABDOMEN PELVIS W CONT Routine 05/02/2025 11:08 AM CDT NM BONE SCAN WHOLE BODY Routine 05/02/20 8:02 AM CDT from Last 3 Months Results * COMPREHENSIVE METABOLIC PANEL (05/02/2025 4:16 PM CDT) Blood us Marck Mott MD CHEMISTRY ORDERABLES Final Resu lt * CBC WITH AUTODIFFERENTIAL (05/02/2025 12:55 PM CDT) Blood us Marck Mott MD HEMATOLOGY ORDERABLES Final Res ult * CHG CA 15 3 (05/02/2025 11:12 AM CDT) us Marck Mott MD CHG - LABORATORY Final Result * CT CHEST ABDOMEN PELVIS W CONT (05/02/2025 11:08 AM CDT) Anatomical Region Laterality Modality Chest Computed Tomogra phy Marck Mott MD CT ORDERABLES Final Result * NM BONE SCAN WHOLE BODY (05/02/2025 8:02 AM CDT) Anatomical Region Laterality Modality Nuclear Medicine Marck Mott MD NM ORDERABLES Final Result from Last 3 Months [place] [facility] Address: [address] [address] Care Teams Time Study Statistician Relationship Specialty Start Date End Date Merritt Herring MD [address] [place] [address] PCP - General Family Practice 05/19/23
--- OUTSIDE RECORDS SUMMARY | 2025-07-11 13:14 | XMS_ITS | Encounter Summary ---
Author Organization [facility] Address [address] [place] [address] Care Team Providers Care Director Microbiology Name Role Phone Merritt Herring MD Primary Care Provider [phone] Encounter Details Date Type Department Care Team (Late Contact Info) Description 09/06/2002 Outpatient Historical [facility] Internal Medicine [address] [phone] Albert Ulrich MD [address] [place] [phone] Social History Tobacco Use Types Packs/Day Years Used Date Smoking Tobacco: Never Assessed Comments Unknown Sex and Gender Information Value Date Recorded Sex Assigned at Not on file Legal Sex Female 3:44 AM RN OTOLARYNGOLOGY Gender Identity Not on file Sexual Orientation Not on file documented as of this encounter Plan of Treatment Upcoming Encounters Date Type Department Care Team (Late st Contact Info) Description 07/18/2025 3:30 PM RN OTOLARYNGOLOGY Office Visit [facility] Oncology and Hematology - [address] [facility] [address] [place] [address] Marck Mott MD [address] [facility] [address] [place] [address] documented as of this encounter Visit Diagnoses Not on filedocumented in this encounter Care Teams Director Microbiology Relationship Specialty Start Date End Date Merritt Herring MD [address] [place] [address] PCP - General Family Practice 05/19/23 documented as of this encounter
--- OUTSIDE RECORDS SUMMARY | 2025-07-11 13:14 | XMS_ITS | Encounter Summary ---
Author Organization [facility] Address [address] [place] [address] Care Team Providers Care Chrome Polisher Name Role Phone Merritt Herring MD Primary Care Provider [phone] Encounter Details Date Type Department Care Team (Late Contact Info) Description 05/07/2004 Outpatient Historical [facility] Internal Medicine [address] [phone] Albert Ulrich MD [address] [place] [phone] Social History Tobacco Use Types Packs/Day Years Used Date Smoking Tobacco: Never Assessed Comments Unknown Sex and Gender Information Value Date Recorded Sex Assigned at Not on file Legal Sex Female 3:44 AM ROTARY SWAGING MACHINE OPERATOR Gender Identity Not on file Sexual Orientation Not on file documented as of this encounter Plan of Treatment Upcoming Encounters Date Type Department Care Team (Late st Contact Info) Description 07/18/2025 3:30 PM ROTARY SWAGING MACHINE OPERATOR Office Visit [facility] Oncology and Hematology - [address] [facility] [address] [place] [address] Marck Mott MD [address] [facility] [address] [place] [address] documented as of this encounter Visit Diagnoses Not on filedocumented in this encounter Care Teams Chrome Polisher Relationship Specialty Start Date End Date Merritt Herring MD [address] [place] [phone] PCP - General Family Practice 05/19/23 documented as of this encounter
--- OUTSIDE RECORDS SUMMARY | 2025-07-11 13:14 | XMS_ITS | Encounter Summary ---
Author Organization [facility] Address [address] [place] [address] Care Team Providers Care Seal Delivery Vehicle Team Technician Name Role Phone Merritt Herring MD Primary Care Provider [phone] Encounter Details Date Type Department Care Team (Late Contact Info) Description 10/24/2003 Outpatient Historical [facility] Internal Medicine [address] [phone] Albert Ulrich MD [address] [place] [phone] Social History Tobacco Use Types Packs/Day Years Used Date Smoking Tobacco: Never Assessed Comments Unknown Sex and Gender Information Value Date Recorded Sex Assigned at Not on file Legal Sex Female 3:44 AM CREATIVE STRATEGIST Gender Identity Not on file Sexual Orientation Not on file documented as of this encounter Plan of Treatment Upcoming Encounters Date Type Department Care Team (Late st Contact Info) Description 07/18/2025 3:30 PM CREATIVE STRATEGIST Office Visit [facility] Oncology and Hematology - [address] [facility] [address] [place] [address] Marck Mott MD [address] [facility] [address] [place] [address] documented as of this encounter Visit Diagnoses Not on filedocumented in this encounter Care Teams Seal Delivery Vehicle Team Technician Relationship Specialty Start Date End Date Merritt Herring MD [address] [place] [address] PCP - General Family Practice 05/19/23 documented as of this encounter
--- OUTSIDE RECORDS SUMMARY | 2025-07-11 13:14 | XMS_ITS | Encounter Summary ---
Author Organization [facility] Address [address] [place] [address] Care Team Providers Care Sap Abap Developer Name Role Phone Merritt Herring MD Primary Care Provider [phone] Encounter Details Date Type Department Care Team (Late Contact Info) Description 01/14/2005 Outpatient Historical [facility]3] Internal Medicine [address] [phone] Albert Ulrich MD [address] [place] [phone] Social History Tobacco Use Types Packs/Day Years Used Date Smoking Tobacco: Never Assessed Comments Unknown Sex and Gender Information Value Date Recorded Sex Assigned at Not on file Legal Sex Female 3:44 AM PUPIL PERSONNEL WORKER Gender Identity Not on file Sexual Orientation Not on file documented as of this encounter Plan of Treatment Upcoming Encounters Date Type Department Care Team (Late st Contact Info) Description 07/18/2025 3:30 PM PUPIL PERSONNEL WORKER Office Visit [facility]3] Oncology and Hematology - [place] [address] [facility] [address] [place] [address] Marck Mott MD [address] [facility] [address] [place] [address] documented as of this encounter Visit Diagnoses Not on filedocumented in this encounter Care Teams Sap Abap Developer Relationship Specialty Start Date End Date Merritt Herring MD [address] [place] [phone] PCP - General Family Practice 05/19/23 documented as of this encounter
--- OUTSIDE RECORDS SUMMARY | 2025-07-11 13:14 | XMS_ITS | Encounter Summary ---
Author Organization [facility] Address [address] [place] [address] Care Team Providers Care Cement Contractor Name Role Phone Merritt Herring MD Primary Care Provider [phone] Encounter Details Date Type Department Care Team (Late Contact Info) Description 06/18/[address] [facility] Internal Medicine [address] [phone] Albert Ulrich MD [address] [place] [phone] Social History Tobacco Use Types Packs/Day Years Used Date Smoking Tobacco: Never Assessed Comments Unknown Sex and Gender Information Value Date Recorded Sex Assigned at Not on file Legal Sex Female 3:44 AM DRYING ROOM OPERATOR Gender Identity Not on file Sexual Orientation Not on file documented as of this encounter Plan of Treatment Upcoming Encounters Date Type Department Care Team (Late st Contact Info) Description 07/18/2025 3:30 PM DRYING ROOM OPERATOR Office Visit [facility] Oncology and Hematology - [place] [address] [facility] [address] [place] [address] Marck Mott MD [address] [facility] [address] [place] [address] documented as of this encounter Visit Diagnoses Not on filedocumented in this encounter Care Teams Cement Contractor Relationship Specialty Start Date End Date Merritt Herring MD [address] [place] [phone] PCP - General Family Practice 05/19/23 documented as of this encounter
--- OUTSIDE RECORDS SUMMARY | 2025-07-11 13:15 | XMS_ITS | Clinical Summary ---
Author Organization [facility] Address [address] [place] [address] Care Team Providers Care Educational Manager Name Role Phone No, Physician Primary Care Provider [phone] Allergies Active Allergy Reactions Criticality Noted Date Comments Enalapril Diarrhea Low 05/01/2009 Sulfa Unknown 04/30/2025 Medications palbociclib (IBRANCE) 125 mg capsule Take by mouth Activ e anastrozole (ARIMIDEX) 1 mg tablet Take by mouth daily Active calcium carbonate (OS-ELE) 1,500 mg (600 mg elemental) tablet Take 1 tablet (1,500 mg total) by mouth Active cholecalciferol (VITAMIN D-3) 2000 unit tablet Active cetirizine (ZyrTEC) 10 mg tablet Take 1 tablet (10 mg total) by mouth daily Active chlorhexidine (PERIDEX) 0.12 % oral rinse SWISH 1 CAPFUL IN MOUTH FOR 45-60 SECONDS THEN SPIT OUT. DO NOT RINSE FOR 30 MINUTES AFTERWARDS. 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 Encounters Date Type Department Care Team Description 06/05/2025 10:30 AM SADDLE CUTTER Procedure visit [facility] [address] [facility] [address] [place] [address] Afkp, Mary, DMD 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); Oral-nasal fistula 05/28/2025 9:00 AM SADDLE CUTTER Procedure visit [facility] [address] [facility] [address] [place] [address] Afshari, Mary, DMD 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); Oral-nasal fistula 05/22/2025 10:00 AM SADDLE CUTTER Procedure visit [facility] [address] [place] [phone] Afshximena, Mary, DMD 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); Oral-nasal fistula 05/17/2025 11:30 AM SADDLE CUTTER Office Visit [facility] [address] [place] [phone] Afkp, Mary, DMD 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); Oral-nasal fistula 05/15/2025 Orders Only [facility] [address] [place] [phone] Miguel Hi from Last 3 Months Medical History Medical History Date Comments History of chemotherapy Smoker Hypothyroid 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 Social History Tobacco Use Types Packs/Day Years Used Date Smoking Tobacco: Some Days Cigarettes Tobacco Cessation:Ready to Q uit: Not Asked; Counseling Given: Not Answered Comments Unknown Sex and Gender Information Value Date Recorded Sex Assigned at Not on file Legal Sex Female 3:38 PM CDT Gender Identity Not on file Sexual Orientation Not on file Last Filed Vital Signs Vital Sign Reading Time Taken Comments Blood Pressure 101/76 06/05/2025 10:32 AM SADDLE CUTTER Pulse 74 06/05/2025 10:32 AM SADDLE CUTTER Temperature - - Respiratory Rate - - Oxygen Saturation - - Inhaled Oxygen Concentration - - Weight - - Height - - Body Mass Index - - Plan of Treatment Health Maintenance Due Date Last Done Comments Depression Screening 1938 Fall Risk Assessment 1938 Osteoporosis Screening-Bone Density Scan 1938 Hepatitis B Screening 1958 DTaP/Tdap/Td Vaccine (1 - Tdap) 07/13/1996 7 Well Visit 65+ 2003 Zoster Vaccine (1 of 2) 12/05/2010 10/10/2010 Covid-19 Vaccine ( - season) 2025 11/01/2020, 10/11/2020, 09/28/2020 Influenza Vaccine (#1) 2025 Pneumococcal vaccine 65+ Completed 016, 08/30/2013, 06/11/2003 Insurance [facility] Address: [facility] [address] [place] [address] Care Teams Educational Manager Relationship Specialty Start Date End Date No, Physician PCP - General 04/02/25
[2025-07-11 14:21] LABS: Hematocrit 33.8 % (37.0-47.0); Hemoglobin 10.9 g/dL (12.0-15.0); Mean Corpuscular HGB Conc 32.2 g/dl (32-36); Mean Corpuscular Hemoglobin 38.4 pg (26-34); Mean Corpuscular Volume 119.0 fl (80-100); Platelet Count Result 290 k/mm3 (150-375); Red Blood Count 2.84 M/mm3 (4.2-5.4)
[2025-07-11 14:51] LABS: Free T3 2.67 pg/mL (2.34-5.61); Free T4 Free Thyroxine 1.35 ng/dL (0.78-2.19)
[2025-07-11 15:01] LABS: Basophils Absolute Manual 0.11 K/mm3 (0.0-0.1); Basophils Percent Manual 6 % (0-1); Eosinophils Absolute Manual 0.11 K/mm3 (0.02-0.50); Eosinophils Percent Manual 6 % (0-4); Lymphocytes Absolute Manual 0.81 K/mm3 (1.1-4.5); Lymphocytes Percent Manual 43 % (18-44); Monocytes Absolute Manual 0.13 K/mm3 (0.1-0.90); Monocytes Percent Manual 7 % (3-9); Neutrophils Percent Manual 38 % (46-73); Total Cells Counted 100
[2025-07-11 15:02] LABS: Macrocytosis 1+ (NORMAL); Schistocytes None Seen
[2025-07-11 15:04] LABS: Thyroid Stimulating Hormone 7.110 uIU/mL (0.465-4.680)
[2025-07-11 15:05] LABS: Alanine Aminotransferase 17 U/L (6-35); Albumin Level 3.9 g/dL (3.5-5.1); Alkaline Phosphatase 86 U/L (38-126); Anion Gap 4 mmol/L (4-12); Aspartate Amino Transferase 42 U/L (14-36); Bilirubin,Total 0.4 mg/dL (0.2-1.3); Blood Urea Nitrogen 31 mg/dL (7-17); Carbon Dioxide 37 mmol/L (22-30); Chloride 98 mmol/L (98-107); Estimated Glomerular Filt Rate 24; Glucose 95 mg/dL (65-110); Potassium 2.9 mmol/L (3.4-5.0); Sodium 139 mmol/L (137-145); Total Protein 7.5 g/dL (6.3-8.2)
[2025-07-11 15:06] LABS: White Blood Count 1.9 K/mm3 (4.5-10.0)
[2025-07-11 15:07] LABS: Calcium 14.1 mg/dL (8.4-10.2)
== END 2025-07-11 13:12 | disposition home or self-care (01) ==
LOC: ANHLAB 13:12
PROVIDERS: Internal Medicine Hematology & Oncology; PCP Nurse Practitioner Family; Visit Provider Nurse Practitioner Family
DX: E03.9 Hypothyroidism, unspecified (principal); I10 Essential (primary) hypertension; C50.919 Malignant neoplasm of unspecified site of unspecified female breast; C79.51 Secondary malignant neoplasm of bone
CPT/HCPCS: 36415; 80053; 84439; 84443; 84481; 85025; 86300